=== PATIENT | male | born 1950 | race Caucasian/White ===

== ENCOUNTER 2024-06-15 18:42 | Inpatient (IN) | payer BC, MEDICARE, SELFPAY ==
[2024-06-15 18:57] VITALS: BP 122/63; PULSE 76; RESP 17; TEMP 36.7; O2SAT 90; BMI 28.5
[2024-06-15 21:30] VITALS: PULSE 76; RESP 17
[2024-06-15] MEDS: Carvedilol 25 MG Tablet GT (22:48)
[2024-06-15] MEDS: Heparin Injection (Vial) 5,000 UNIT/ML VIAL 5000 UNIT SC (22:48)
[2024-06-15] MEDS: Amox/Clavulanate 875 MG Tablet GT (22:49)
[2024-06-15] MEDS: Ergocalciferol 1.25 MG (50, 000 UNIT) Capsule PO (22:49)
[2024-06-16] VITALS (7 sets, daily range): BP systolic 110–133; BP diastolic 62–77; PULSE 54–75; RESP 17–18; TEMP 36.5–36.8; O2SAT 85–94; BMI 28.5
[2024-06-16] MEDS: Heparin Injection (Vial) 5,000 UNIT/ML VIAL 5000 UNIT SC (06:06)
[2024-06-16 08:23] LABS: Absolute Lymphocyte Count 2.09 X10^3/uL (0.83-4.51); Absolute Neutrophil Count 9.7 X10^3/uL (2.0-7.7); Basophil# 0.14 X10^3/uL; Eosinophil# 0.63 X10^3/uL; Eosinophils% 4.5 % (0-5); Hemoglobin 12.2 g/dL (13.0-16.5); Lymphocyte # 2.09 X10^3/ul (0.83-4.51); Mean Corp Hgb Conc 32.1 g/dL (32-36); Mean Corpuscular Hgb 28.8 pg (27.0-32.0); Mean Corpuscular Volume 89.8 fL (80-94); Mean Platelet Vol. 11.6 fl (6.2-12.0); Monocyte# 1.22 X10^3/uL; Monocyte% 8.8 % (0-10); NRBC Flagged by Analyzer 0 % (0-5); Neutrophil # 9.66 X10^3/uL (2.7-7.7); Neutrophil % 69.5 % (47-70); Platelet Count 388 K/mm3 (150-450); RBC Distribution Width CV 13.2 % (11.6-14.6); RBC Distribution Width SD 42.8 fl (35.1-43.9); Red Blood Count 4.23 M/mm3 (4.6-6.2); White Blood Count 13.9 K/mm3 (4.4-11.0)
[2024-06-16 08:42] LABS: Anion Gap 3 (5-15); BUN 33 mg/dL (7-18); BUN/Creat Ratio 35.7 RATIO (10-20); Chloride 106 mmol/L (98-107); Creatinine, Serum 0.92 mg/dL (0.70-1.30); EST Glomerular Filtration Rate 86 mL/min (>60); Est Glom Filt Rate - Afr Amer 104 mL/min (>60); Estimated Creatinine Clearance 70.85 ml/min; Glucose 123 mg/dL (74-106); Magnesium 2.6 mg/dL (1.6-2.6); Sodium Level 135 mmol/L (136-145)
[2024-06-16 08:49] LABS: Phosphorus 3.9 mg/dL (2.5-4.9)
[2024-06-16] MEDS: Thiamine Hydrochloride 100 MG Tablet GT (11:03)
[2024-06-16] MEDS: Amox/Clavulanate 875 MG Tablet GT (11:03)
[2024-06-16] MEDS: Ascorbic Acid 500 MG Tablet GT (11:03)
[2024-06-16] MEDS: Carvedilol 25 MG Tablet GT ×2 (11:03→21:26)
[2024-06-16] MEDS: amLODIPine 10 MG Tablet GT (11:03)
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
[2024-06-16 12:44] LABS: AST(SGOT) 19 U/L (15-37); Alanine Aminotransfer ALT/SGPT 26 U/L (16-61); Albumin, Serum 2.3 g/dL (3.2-5.0); Alkaline Phosphatase 76 U/L (45-117); Bilirubin, Direct 0.12 mg/dL (0.00-0.30); Globulin 4.4 g/dL (2.2-4.2); Protein, Total 6.7 g/dL (6.4-8.2)
--- NOTE | 2024-06-16 13:08 | RAD_ITS ---
EXAM: XR CHEST, 1 VIEW CLINICAL INDICATION: cough/leukocytosis TECHNIQUE: Frontal view of the chest. COMPARISON: No relevant prior studies available. FINDINGS: LUNGS AND PLEURAL SPACES: Ill-defined opacity involving the medial aspect of the right lower lung and possibly also the retrocardiac region of the left lower lobe. Central bronchial thickening is concerning for bronchitis. No pneumothorax. No effusion. HEART: Unremarkable. Cardiac silhouette not enlarged. MEDIASTINUM: Central airways and mediastinal contour are unremarkable. BONES/JOINTS: Degenerative changes of the spine. No acute fracture. SOFT TISSUES: Unremarkable. VASCULATURE: Atherosclerotic calcifications of the nonenlarged thoracic aortic arch. RAD/Chest 1 View (Portable) IMPRESSION: Ill-defined opacity involving the medial aspect of the right lower lung and possibly also the retrocardiac region of the left lower lobe. Consider atelectasis versus infiltrate. Findings concerning for bronchitis, age indeterminate. Electronically Signed: Brody Krishnan MD at 14:58 EST ,
[2024-06-16 13:43] LABS: Bacteria 0 SEEN /hpf (None Seen); Mucous, Urine 0 SEEN /hpf (<or=2+); Squamous Epithelial Cells - UA 0 SEEN /hpf (0-5)
[2024-06-16 13:53] LABS: Color, Urine Yellow (Yellow); Glucose, Dipstick Normal (Normal); Ketone-Dipstick Negative (Negative); Leukocyte Esterase-Dipstick 25 /ul (Negative); Nitrite-Dipstick Negative (Negative); Occult Blood-Urine 10 /ul (Negative); Protein-Dipstick 15 mg/dl (Negative); Urine Bilirubin Dipstick Negative (Negative); Urine Clarity Clear (Clear); Urine Urobilinogen 1 mg/dl (Normal); Urine pH 6.5 (5.0 - 8.0)
[2024-06-16 14:00] LABS: Osmolality, Serum 304 mOsm/KG (280-301)
[2024-06-16 14:02] LABS: Hyaline Cast 0-5 SEEN /lpf (0-5); Red Blood Cells-Urine 0-5 SEEN /hpf (0-5); White Blood Cells 0-5 SEEN /hpf (0-5)
[2024-06-16 14:08] LABS: Bacteria 0 SEEN /hpf (None Seen); Mucous, Urine 0 SEEN /hpf (<or=2+); Red Blood Cells-Urine 0 SEEN /hpf (0-5); Squamous Epithelial Cells - UA 0 SEEN /hpf (0-5)
[2024-06-16 14:20] LABS: Color, Urine Yellow (Yellow); Glucose, Dipstick Normal (Normal); Ketone-Dipstick Negative (Negative); Leukocyte Esterase-Dipstick 25 /ul (Negative); Nitrite-Dipstick Negative (Negative); Occult Blood-Urine Negative /ul (Negative); Protein-Dipstick Negative (Negative); Specific Gravity, Urine 1.025 (1.002-1.030); Urine Bilirubin Dipstick Negative (Negative); Urine Clarity Clear (Clear); Urine Urobilinogen 1 mg/dl (Normal)
[2024-06-16 14:29] LABS: Osmolality, Urine 718 mOsm/KG
[2024-06-16 14:29] LABS: Hemoglobin A1c 5.5 % (3.8-5.6)
[2024-06-16 14:31] LABS: Urine Sodium 49 mmol/L (Not Establ.)
[2024-06-16 14:40] LABS: White Blood Cells 0-5 SEEN /hpf (0-5)
--- NOTE | 2024-06-16 15:04 | REHABEVAL_ITS ---
Admission Information Primary Diagnosis:: Intracerebral hemorrhage Status Changes from Prescreening?: No changes Identified Actual Problem List:: Aspiration, Skin Intergrity, Pain, ALteration in Cmfrt, Cognitve Impr/Memory Loss, Depression, Bladder Incontinence (Urine retention), Alteration in Nutrition, Mobility Impaired, Self Care Deficit, Know.Dfct of Medicaitons, BP, Hypertension, Alteration/ Air Exchange and Alteration-Leisure Activ. Potential Problem List:: DVT, Bleeding, Infection, UTI, Aspiration, Falls, Skin Integrity and Depression Risk of Complications DVT: VERONICA Hose and - (Lovenox 40 mg subcu daily) Bleeding: Monitor Lab Values, Nursing to Teach Precautions for anti-coagulation therapy., Wound, if applicable, to be assessed every shift. and Stroke patients assessed for lethargy or change in status. Infection: Clinical Staff to Monitor for S/S of infection: and S/S of infection include fever, redness, warmth, etc. Urinary Tract Infection: Monitor for frequency, burning, discomfort, or incontinence. and Nursing will obtain urine sample for urinalysis and C&S when ordered. Aspiration: Clinical staff will monitor for coughing, drooling, congestion., Speech will evaluate swallowing and dsyphasia. and Nursing will monitor patient swallowing during meals. Falls: Patient will be evaluated for Fall Precautions and Patient will be placed on Fall Precautions as indicated per protocol. Skin Breakdown: Nursing will assess skin daily using assessment tool. and Tiago sing will place on Skin Breakdown Precautions as indicated. Pain: Clinical staff will assess patient's pain level per protocol., Medications will be given, if needed, and the pain level reassessed. and Other methods: Massage, distraction, decrease stimulus, etc. used PRN. Plan of Care Patient requires physician specializing in physical medicine and rehab oversight to provide close medical supervision of rehab issues including: Pain Management, Sleep Problems, Bowel and Bladder, Medical and co-morbidity Management, DVT pr ophylaxis, Rehabilitation Leadership and Coordination of treatment team Patient needs Physical Therapy: For a minimum of 1 hour and At least 5 out of 7 days Patient needs Physical Therapy to improve:: Mobility, Strengthening, Transfers, Stretching, ROM, Endurance, Stairs, Gait and Balance Patient needs Occupational Therapy: For a minimum of 1 hour and At least 5 out of 7 days Patient needs Occupational Therapy to improve ADL's incl.: Eating, Grooming, Bathing, Dressing, Toileting, Toilet transfers, Community Reintegration, Higher functioning activities, Household tasks, Adaptive Equipment, Splinting and Other activities as determined Patient requires speech therapy: For a minimum of 1 hour and At least 5 out of 7 days Patient requires speech therapy for: Swallowing, Cognition, Language Skills and Compensatory Strategies Patient requires 24/ Rehabilitation Nursing for: Pain Issues, Identifying and preventing risk factors, Monitoring and reporting current medical conditions, Assisting with ambulation, transfer, and all ADL's, Teaching patients about disease process and medications, Family teaching, Providing safe environment, Bowel and Bladder Issues, Skin integrity and Medication Management Patient needs Poultry Farm Manager/ Case Management for: Discharge Planning, Arranging Home Equipment or Services and Family Interventions Patient needs Dietary and Nutrition Services for: Adequate Nutrition, Nutritional Supplements and Nutritional Education Goals Goals Patient will remain: free from falls Patient will perform eating at: MOD I level of assist. Patient will perform bed mobility at: MOD I level of assist. Patient will complete transfers from bed to chair at: - (Contact-guard assist/standby assist) Patient will ambulate: - (100 feet with least restrictive device at contact- guard assist on various surfaces) Patient will complete upper body dressing at: - (Supervision) Patient will complete lower body dressing at: - (Revision with adaptive equipment as needed) Patient will complete toilet transfer at: - (Supervision) Patient will complete toileting at: - (Supervision) Patient will perform bathing at: - (Supervision with adaptive equipment as needed for lower body bathing.) Patient will perform Tub/Shower transfer at: - (Supervision using DME as needed.) Patient will complete grooming at: - (Supervision while seated at the sink) Patient will achieve: - (1 step with least restrictive device using the door frame for assistance to allow access to his home.) Patient will have pain level of: of 3 or less Patient's skin will: remain intact Patient will receive: adequate nutrition. Discharge Planning Pt Prognosis for Sig. Practical Improv. w/in Reasonable Time: Good Estimated Length of stay (days): 42 Anticipated D/C Destination: Home with Home Health
--- NOTE | 2024-06-16 15:54 | CASEMGMT ---
Social Work Pt cannot participate in admission assessment. SW attempted to phone , but no answer. SW will continue to attempt. Jacy Barajas, IN SERVICE COORDINATOR AUT[employer] RADIATOR MECHANIC
[2024-06-16] MEDS: 0.9% Normal Saline (1000mL) 1,000 ML 75 ML IV (17:53)
[2024-06-16] MEDS: Jevity 1.5. 1,000 ML Bottle 240 ML GT ×2 (18:00→22:58)
[2024-06-16] MEDS: Gentamicin Sulfate 1 OPTH.BTL 1 DRP EACH EYE (21:30)
--- NOTE | 2024-06-17 00:54 | NURSING ---
2049 hs care and clinical findings completed, pt belly noted to more rounded this hs, bowel sounds are present times 4 quads. pt checked for residual and was 120ccplus. jevity held until later, and rn made aware. 2299 pt residual was rechecked and was 45cc and brown in color, jevity given at this time but had a dry heave when almost finished. pt placed in high fowlers and was encouraged to stay up to let the jevity digest
[2024-06-17] MEDS: Gentamicin Sulfate 1 OPTH.BTL 1 DRP EACH EYE ×6 (02:38→21:00)
[2024-06-17] MEDS: Cosyntropin 0.25 MG in 0.9% Normal Saline (Pres. free 4 ML 150 MG IV (04:53)
[2024-06-17] MEDS: 0.9% Saline Lock 10 ML Syringe IV (04:53)
[2024-06-17 05:00] VITALS: BP 118/72; PULSE 69; RESP 16; TEMP 36.7; O2SAT 94
[2024-06-17] MEDS: Jevity 1.5. 1,000 ML Bottle 240 ML GT ×5 (05:14→21:02)
[2024-06-17 05:18] LABS: Cholesterol 113 mg/dL (200); High Density Lipoprotein 33 mg/dL; Triglycerides 84 mg/dL; Very Low Density Lipoprotein 17 mg/dL (5-40)
[2024-06-17] MEDS: 0.9% Normal Saline (1000mL) 1,000 ML 75 ML IV (07:48)
[2024-06-17] MEDS: Carvedilol 25 MG Tablet GT ×2 (07:59→21:00)
[2024-06-17] MEDS: amLODIPine 10 MG Tablet GT (07:59)
[2024-06-17] MEDS: Thiamine Hydrochloride 100 MG Tablet GT (08:00)
[2024-06-17] MEDS: Ascorbic Acid 500 MG Tablet GT (08:00)
[2024-06-17] MEDS: Enoxaparin 40 MG/0.4 ML Syringe SC (08:00)
[2024-06-17] MEDS: Sertraline 50 MG Tablet GT (08:00)
[2024-06-17 08:11] VITALS: BP 109/72; PULSE 80; O2SAT 94
[2024-06-17 17:53] VITALS: BP 129/81; PULSE 79; RESP 20; TEMP 36.6; O2SAT 79
[2024-06-17 20:50] VITALS: O2SAT 88
[2024-06-17 20:58] VITALS: BP 146/78; PULSE 83; RESP 20; TEMP 36.8; O2SAT 92
[2024-06-18] MEDS: Gentamicin Sulfate 1 OPTH.BTL 1 DRP EACH EYE ×6 (02:12→21:36)
[2024-06-18 04:48] VITALS: BP 127/71; PULSE 74; RESP 20; TEMP 36.8; O2SAT 92
[2024-06-18] MEDS: Enoxaparin 40 MG/0.4 ML Syringe SC (05:58)
[2024-06-18] MEDS: Jevity 1.5. 1,000 ML Bottle 240 ML GT ×5 (05:59→21:39)
[2024-06-18 08:17] VITALS: O2SAT 96
[2024-06-18 08:53] VITALS: BP 139/75; PULSE 80
[2024-06-18] MEDS: Cholecalciferol (Vit D3) 125 MCG CAPSULE (5,000 UNITS) GT (09:49)
[2024-06-18] MEDS: Thiamine Hydrochloride 100 MG Tablet GT (09:49)
[2024-06-18] MEDS: amLODIPine 10 MG Tablet GT (09:49)
[2024-06-18] MEDS: Ascorbic Acid 500 MG Tablet GT (09:49)
[2024-06-18] MEDS: Sertraline 50 MG Tablet GT (09:49)
[2024-06-18] MEDS: Carvedilol 25 MG Tablet GT ×2 (09:49→21:42)
[2024-06-18 18:00] VITALS: BP 113/65; PULSE 75; RESP 18; TEMP 36.8; O2SAT 91
[2024-06-19] MEDS: Gentamicin Sulfate 1 OPTH.BTL 1 DRP EACH EYE ×6 (02:08→22:32)
[2024-06-19] MEDS: 0.9% Saline Lock 10 ML Syringe IV ×2 (02:10→22:51)
[2024-06-19 06:00] VITALS: BP 114/73; PULSE 70; RESP 17; TEMP 36.7; O2SAT 92
[2024-06-19] MEDS: Enoxaparin 40 MG/0.4 ML Syringe SC (06:07)
[2024-06-19] MEDS: Jevity 1.5. 1,000 ML Bottle 240 ML GT ×5 (06:07→22:38)
[2024-06-19] MEDS: Carvedilol 25 MG Tablet GT ×2 (09:35→22:32)
[2024-06-19] MEDS: Sertraline 50 MG Tablet GT (09:35)
[2024-06-19] MEDS: Ascorbic Acid 500 MG Tablet GT (09:35)
[2024-06-19] MEDS: Thiamine Hydrochloride 100 MG Tablet GT (09:35)
[2024-06-19] MEDS: Cholecalciferol (Vit D3) 125 MCG CAPSULE (5,000 UNITS) GT (09:35)
[2024-06-19] MEDS: amLODIPine 10 MG Tablet GT (09:35)
[2024-06-19 09:36] VITALS: BP 109/65; PULSE 66
--- NOTE | 2024-06-19 09:36 | PCM.PROGNOTE ---
Subjective Subjective Please he was seen on team rounds today. His did not answer the phone when we attempted to return to participate by phone. Afebrile VSS - Maintaining an oxygen saturation of generally 98-94 on a 3 L nasal cannula. Oral intake - FOOD n.p.o./PEG feedings FLUIDS n.p.o. Incontinent of stool-having 1-2 bowel movements daily. Discussed with nursing - no problems that need addressed. Tolerating bolus tube feed with no residuals. Nursing is suctioning for clear secretions. Reviewed the THERAPY notes Medication list reviewed. doing better with ST. Able to identify the year he was born, his age, where he lives using a white board and given 3 choices. Occasional cough. No labored breathing. Not tachypneic. Still not able to cough and clear the secretions in the back of his throat. Denies pain. Not5 really able to maintain an upright posture in the recliner.......keeps sliding down so that he is mostly reclined. I reviewed additional documentation we received from previous hospital. Transthoracic echocardiogram showed a hyperdynamic left ventricle with a 70 to 75% ejection fraction and no wall motion abnormalities. There was impaired relaxation of the left ventricle. An incidental finding on CTA of the chest was a 3.4 cm x 2.7 cm heterogeneous left adrenal gland nodule. Also on the CTA there was severe upper lung predominant centrilobular and paraseptal emphysema. There were dependent secretions noted within the trachea and central airways resulting in mild narrowing of the left principal bronchus. There were no suspicious pulmonary nodules or masses. An incidental finding on the CT brain is a 3.4 cm right parotid mass. Objective Data Objective Data Vital Signs: Vital Signs Temp Pulse Resp BP Pulse Ox O2 Del Method O2 Flow Rate 98.0 F 66 17 109/65 92 Nasal Cannula 3 06/19/24 06:00 06/19/24 09:36 06/19/24 06:00 06/19/24 09:36 06/19/24 06:00 06/19/24 06:00 06/19/24 06:00 FiO2 94 06/16/24 20:50 Oxygen Flow Rate (L/min) 3 Oxygen Delivery Method Nasal Cannula Weight: 171 lb 8.314 oz Body Mass Index (BMI) 28.5 Intake & Output: Intake and Output for Last 24 Hours 06/17/24 06/18/2406/19/25 23:59 23:59 23:59 Intake Total 4765 / 4765 1780 / 1780 640 / 640 Output Total 1900 / 1900 1900 / 1900 250 / 250 Balance 2865 / 2865 -120 / -120 390 / 390 Lab / Micro Data 06/16/24 08:06 06/16/24 08:06 Micro: Microbiology 06/16/24 14:37 Discharge - Eye Eye Culture - Preliminary Staphylococcus epidermidis 06/16/24 14:37 Discharge - Eye Anaerobic Culture - Preliminary Checking for anaerobes, further studies to follow. 06/15/24 19:00 Urine Catheter - Denton Urine Culture - Final Culture exhibits no growth. 06/16/24 14:25 Stool Stool Occult Blood (ZITA) - Final Physical Exam Const Constitutional Narrative: more awake and better able to participate with therapy. Very weak. Unable to sit upright in the chair without sliding down into a semi-reclining postition. Unable to cough and Clear post pharyngeal secretions. Making better eye contact. General Appearance: cooperative HEENT HEENT Narrative: Has gurgling in the back of the throat that he is unable to cough up and expel. Conjunctival injection has resolved. The eyes are tearing a little but no purulent discharge now. Culture grew a multidrug-resistant Staph epidermidis. It is sensitive to gentamicin. Eyes PERRL Neck Neck Narrative: unable to hold his head up, chin is on his chest. Resp Resp Narrative: Very poor inspiratory effort. Breath sounds markedly diminished throughout. No wheezes or crackles auscultated. Not tachypneic. Head is flexed on the chest and I think this is causing some obstruction to air flow. Cardio regular rate and regular rhythm Cardio Narrative: No ectopy. Distant heart sounds GI normal to inspection, nondistended, normoactive bowel sounds and soft to palpation GI Narrative: No guarding with palpation. The PEG site is free of erythema or purulent discharge. Extremity General Extremity: Negative for edema Skin Wound Narrative: The rash on the abd is much improved. Localized pink dry crusty area now. No longer scratching at it. Psych Psych Narrative: making better eye contact today. Assessment & Plan Assessment/Plan (1) Debility: (2) ICH (intracerebral hemorrhage): QUALIFIERS: Intracerebral hemorrhage etiology: nontraumatic Cerebral hemorrhage location: other cerebral location Laterality: left Qualified Code(s): I61.8 - Other nontraumatic intracerebral hemorrhage (3) Right hemiparesis: (4) Aphasia: (5) Dysarthria: (6) Dysphagia: QUALIFIERS: Dysphagia type: unspecified Qualified Code(s): R13.10 - Dysphagia, unspecified (7) S/P percutaneous endoscopic gastrostomy (PEG) tube placement: (8) Urine retention: (9) Denton catheter present: (10) Depression: QUALIFIERS: Depression Type: major depressive disorder Major depression recurrence: unspecified whether recurrent Active/Remission status: currently active Major depression episode severity: severe Psychotic features: without psychotic features Qualified Code(s): F32.2 - Major depressive disorder, single episode, severe without psychotic features (11) Hyperglycemia: (12) HTN (hypertension): QUALIFIERS: Hypertension type: primary hypertension Qualified Code(s): I10 - Essential (primary) hypertension (13) Pneumonia: QUALIFIERS: Pneumonia type: due to unspecified organism Laterality: unspecified laterality Lung location: unspecified part of lung Qualified Code(s): J18.9 - Pneumonia, unspecified organism PLAN: Resolved (14) Conjunctivitis: QUALIFIERS: Conjunctivitis type: unspecified Laterality: bilateral Qualified Code(s): H10.9 - Unspecified conjunctivitis PLAN: Much improved with gentamicin drops. (15) Hyponatremia: (16) Adrenal mass, left: PLAN: Will need further workup as an outpatient following discharge from rehab. (17) Centrilobular emphysema: PLAN: Plan 1. Continue therapy 2. CBC with differential and BMP in the a.m. 3. soft cervical collar when he is out of bed 4. Start aerosols Q6H for severe emphysema. 5. suction mouth and posterior pharynx PRN AF. No indication for antibiotic at this time. 6. Will need further evaluation for the left adrenal nodule and right parotid mass postdischarge from rehab. Charges/Coding Visit Charges Inpatient E&M: 99405 Subs Hosp L2
--- NOTE | 2024-06-19 10:57 | CASEMGMT ---
Social Work Phone call to pt to complete admission assessment. VM left with request for return call. VICTORINA Lemus
--- NOTE | 2024-06-19 14:48 | CASEMGMT ---
IDT meeting held today with pt in attendance. Phone call to pt's spouse for conference call with no answer and VM left. PT/OT/ST/SN updated pt on current progress in . PT has shown improvement since admission on and is more alert and participating better at this time. ST working with pt on swallowing and communication. Pt is currently getting tube feeds and wearing oxygen. Pt working with PT/OT for function. JOE explained that [employer] insurance is covering stay in and NRD is 06/22. Continued stay is not guaranteed. At this time pt is unable to communicate with staff. SW has been unable to reach pt's by phone. 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 SW will continue to reach out to pt spouse to discuss home situation and discharge plan. Will continue with treatment plan at this time and ReTeam next week. VICTORINA Lemus
[2024-06-19 18:00] VITALS: BP 101/65; PULSE 68; RESP 17; TEMP 36.8; O2SAT 94
[2024-06-19 20:30] VITALS: PULSE 71; RESP 24; O2SAT 93
[2024-06-19] MEDS: Ipratropium/Albuterol Sulfate 3 ML AMPUL.NEB INHALATION (20:30)
--- NOTE | 2024-06-19 21:07 | CPS ---
[2030] Had to go to ER per medical emergency. CLOTH W[employer] WEAVER agreeable to take aerosol mask off of pt. when complete.
[2024-06-20] VITALS (7 sets, daily range): BP systolic 115–118; BP diastolic 70–77; PULSE 68–82; RESP 16–22; TEMP 36.6–36.9; O2SAT 86–92
[2024-06-20] MEDS: Ipratropium/Albuterol Sulfate 3 ML AMPUL.NEB INHALATION ×4 (01:21→19:40)
[2024-06-20] MEDS: Gentamicin Sulfate 1 OPTH.BTL 1 DRP EACH EYE ×6 (01:51→23:22)
[2024-06-20 05:59] LABS: Absolute Lymphocyte Count 2.13 X10^3/uL (0.83-4.51); Absolute Neutrophil Count 8.3 X10^3/uL (2.0-7.7); Basophil# 0.12 X10^3/uL; Eosinophil# 0.34 X10^3/uL; Eosinophils% 2.7 % (0-5); Hematocrit 36.3 % (40-54); Hemoglobin 11.4 g/dL (13.0-16.5); Lymphocyte # 2.13 X10^3/ul (0.83-4.51); Mean Corp Hgb Conc 31.4 g/dL (32-36); Mean Corpuscular Hgb 28.3 pg (27.0-32.0); Mean Corpuscular Volume 90.1 fL (80-94); Mean Platelet Vol. 11.4 fl (6.2-12.0); Monocyte# 1.54 X10^3/uL; Monocyte% 12.3 % (0-10); NRBC Flagged by Analyzer 0 % (0-5); Neutrophil # 8.31 X10^3/uL (2.7-7.7); Neutrophil % 66.2 % (47-70); POSITIVE DIFFERENTIAL YES; Platelet Count 362 K/mm3 (150-450); RBC Distribution Width CV 13.2 % (11.6-14.6); RBC Distribution Width SD 42.9 fl (35.1-43.9); Red Blood Count 4.03 M/mm3 (4.6-6.2); White Blood Count 12.5 K/mm3 (4.4-11.0)
--- NOTE | 2024-06-20 06:00 | NURSING ---
20cc residual green in color, peg patent/flushes well. Peg site clean/dry/intact.
[2024-06-20 06:05] LABS: Differential Indicated SCAN CRITERIA MET
[2024-06-20] MEDS: Jevity 1.5. 1,000 ML Bottle 240 ML GT ×5 (06:14→23:26)
[2024-06-20] MEDS: Enoxaparin 40 MG/0.4 ML Syringe SC (06:14)
[2024-06-20 06:25] LABS: Anion Gap 2 (5-15); BUN 21 mg/dL (7-18); BUN/Creat Ratio 26.7 RATIO (10-20); Calcium,Total 8.7 mg/dL (8.5-10.1); Chloride 103 mmol/L (98-107); Creatinine, Serum 0.79 mg/dL (0.70-1.30); EST Glomerular Filtration Rate 103 mL/min (>60); Est Glom Filt Rate - Afr Amer 125 mL/min (>60); Estimated Creatinine Clearance 81.48 ml/min; Glucose 105 mg/dL (74-106); Potassium 4.1 mmol/L (3.5-5.1); Sodium Level 133 mmol/L (136-145)
[2024-06-20 07:16] LABS: Platelet Estimate ADEQUATE (ADEQ)
[2024-06-20] MEDS: Thiamine Hydrochloride 100 MG Tablet GT (09:54)
[2024-06-20] MEDS: amLODIPine 10 MG Tablet GT (09:54)
[2024-06-20] MEDS: Ascorbic Acid 500 MG Tablet GT (09:54)
[2024-06-20] MEDS: Sertraline 50 MG Tablet GT (09:54)
[2024-06-20] MEDS: Carvedilol 25 MG Tablet GT ×2 (09:54→23:22)
[2024-06-20] MEDS: Cholecalciferol (Vit D3) 125 MCG CAPSULE (5,000 UNITS) GT (09:55)
[2024-06-20] MEDS: 0.9% Saline Lock 10 ML Syringe IV (09:58)
--- NOTE | 2024-06-20 13:34 | PCM.PROGNOTE ---
Subjective Subjective Afebrile VSS - Maintaining appropriate oxygen saturation on RA Oral intake - FOOD n.p.o. FLUIDS n.p.o. fluid balance over the past 3 and half days is +413. Discussed with nursing - keeps taking his oxygen off. Reviewed the THERAPY notes - ability to participate in therapy waxes and wanes. He fatigues very easily. Medication list reviewed. Mostly non-verbal. He did say no when I asked him if he was 82 YO and when I asked him if he was a woman. Not consistently making good eye contact. Does not seem to be in any pain. He was watching the TV when I entered his room. He is not tachypneic and has no labored breathing. He is not restless other than taking hid oxygen off. All lab from this morning was personally viewed. White blood cell count is 12.5, down from 13.8. Immature granulocytes and neutrophils are within normal limits. Hemoglobin is 11.4, down from 12.2 but he is better hydrated. Platelets are within normal limits. Sodium is 133 and the potassium is 4.1. The BUN is 21, down from 33 on 06/16/2024 and the creatinine is 0.79, down from 0.9-1.25. Objective Data Objective Data Vital Signs: Vital Signs Temp Pulse Resp BP Pulse Ox O2 Del Method O2 Flow Rate 98.5 F 71 16 115/77 92 Nasal Cannula 9 06/20/24 06:30 06/20/24 13:05 06/20/24 13:05 06/20/24 06:30 06/20/24 07:02 06/20/24 10:00 06/20/24 10:00 FiO2 94 06/16/24 20:50 Oxygen Flow Rate (L/min) 9 Oxygen Delivery Method Nasal Cannula Weight: 171 lb 8.314 oz Body Mass Index (BMI) 28.5 Intake & Output: Intake and Output for Last 24 Hours 06/18/24 06/19/24 06/20/24 23:59 23:59 23:59 Intake Total 1780 / 1780 2320 / 2320 640 / 640 Output Total 1900 / 1900 1275 / 1275 300 / 300 Balance -120 / -120 1045 / 1045 340 / 340 Lab / Micro Data 06/20/24 05:39 06/20/24 05:39 Labs: Laboratory Results - last 24 hr 06/17/24 07:04: Cortisol 37.20 H 06/20/24 05:39: WBC 12.5 H, RBC 4.03 L, Hgb 11.4 L, Hct 36.3 L, MCV 90.1, MCH 28.3, MCHC 31.4 L, RDW Std Deviation 42.9, RDW Coeff of Homero 13.2, Plt Count 362, MPV 11.4, Immature Gran % (Auto) 0.800, Neut % (Auto) 66.2, Lymph % (Auto) 17.0 L, Mobile % (Auto) 12.3 H, Eos % (Auto) 2.7, Baso % (Auto) 1.0, Absolute Neuts (auto) 8.3 H, Absolute Lymphs (auto) 2.13, Nucleated RBC % 0, Platelet Estimate ADEQUATE, Sodium 133 L, Potassium 4.1, Chloride 103, Carbon Dioxide 28.0, Anion Gap 2 L, BUN 21 H, Creatinine 0.79, Estim Creat Clear Calc 81.48, Est GFR (MDRD) Af Amer 125, Est GFR (MDRD) Non-Af 103, BUN/Creatinine Ratio 26.7 H, Glucose 105, Calcium 8.7 Micro: Microbiology 06/16/24 14:37 Discharge - Eye Gram Stain - Final 06/16/24 14:37 Discharge - Eye Eye Culture - Final Staphylococcus epidermidis 06/16/24 14:37 Discharge - Eye Anaerobic Culture - Final No anaerobic bacteria isolated. 06/15/24 19:00 Urine Catheter - Denton Urine Culture - Final Culture exhibits no growth. 06/16/24 14:25 Stool Stool Occult Blood (ZITA) - Final Physical Exam Const Constitutional Narrative: Able to hold his head up a little better today. Did not have the soft collar on when I saw him. Eyes Eyes Narrative: No DC and no conjunctival injection. Resp Resp Narrative: seems to have increased air exchange in the upper lobes today.........occasional cough.......less gurgling. cough is more forceful today and he sounded as though he cleared the secretions in the posterior pharynx with the cough. No wheezing. Still very diminished in the bases. Effort and Inspection: Negative for tachypneic, respiratory distress, labored or uses accessory muscles Cardio regular rate and regular rhythm Cardio Narrative: Distant heart sounds GI normal to inspection, nondistended, normoactive bowel sounds, soft to palpation and non-tender GI Narrative: 2 BMs yesterday. Extremity Extremity Narrative: no calf pain or grimacing with compression of the calf. General Extremity: Negative for edema Skin Wound Narrative: Dry skin and rash from the Hydralaziine are much improved. he is no longer scratching. Assessment & Plan Assessment/Plan (1) Debility: (2) ICH (intracerebral hemorrhage): QUALIFIERS: Intracerebral hemorrhage etiology: nontraumatic Cerebral hemorrhage location: other cerebral location Laterality: left Qualified Code(s): I61.8 - Other nontraumatic intracerebral hemorrhage (3) Right hemiparesis: (4) Aphasia: (5) Dysarthria: (6) Dysphagia: QUALIFIERS: Dysphagia type: unspecified Qualified Code(s): R13.10 - Dysphagia, unspecified (7) S/P percutaneous endoscopic gastrostomy (PEG) tube placement: (8) Urine retention: (9) Denton catheter present: (10) Depression: QUALIFIERS: Depression Type: major depressive disorder Major depression recurrence: unspecified whether recurrent Active/Remission status: currently active Major depression episode severity: severe Psychotic features: without psychotic features Qualified Code(s): F32.2 - Major depressive disorder, single episode, severe without psychotic features (11) Hyperglycemia: (12) HTN (hypertension): QUALIFIERS: Hypertension type: primary hypertension Qualified Code(s): I10 - Essential (primary) hypertension (13) Pneumonia: QUALIFIERS: Pneumonia type: due to unspecified organism Laterality: unspecified laterality Lung location: unspecified part of lung Qualified Code(s): J18.9 - Pneumonia, unspecified organism (14) Conjunctivitis: QUALIFIERS: Conjunctivitis type: unspecified Laterality: bilateral Qualified Code(s): H10.9 - Unspecified conjunctivitis (15) Hyponatremia: (16) Adrenal mass, left: (17) Centrilobular emphysema: (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 Continue therapy 2. And sodium chloride tablets 1 g per PEG tube twice daily 3. Recheck sodium on Wednesday or Wednesday. 4. Continue current tube feeding and water flushes. Charges/Coding Visit Charges Inpatient E&M: 90910 [facility] Hosp L1
--- NOTE | 2024-06-20 14:43 | NURSING ---
pt refused ST today
--- NOTE | 2024-06-20 15:07 | CASEMGMT ---
Social Work A third attempt to contact the to complete the SW admit assessment. VM left requesting return call. Jacy Barajas MSW POLICE DISPATCHER
[2024-06-20] MEDS: Sodium Chloride 1 GM Tablet GT (23:22)
[2024-06-21] VITALS (8 sets, daily range): BP systolic 101–140; BP diastolic 72–89; PULSE 73–77; RESP 16–18; TEMP 36.6–36.7; O2SAT 87–94
[2024-06-21] MEDS: Gentamicin Sulfate 1 OPTH.BTL 1 DRP EACH EYE ×5 (03:41→17:14)
[2024-06-21] MEDS: Jevity 1.5. 1,000 ML Bottle 240 ML GT ×2 (05:15→09:19)
[2024-06-21] MEDS: Enoxaparin 40 MG/0.4 ML Syringe SC (05:15)
[2024-06-21] MEDS: Ipratropium/Albuterol Sulfate 3 ML AMPUL.NEB INHALATION ×3 (08:05→19:55)
[2024-06-21] MEDS: Carvedilol 25 MG Tablet GT ×2 (09:18→21:34)
[2024-06-21] MEDS: Cholecalciferol (Vit D3) 125 MCG CAPSULE (5,000 UNITS) GT (09:18)
[2024-06-21] MEDS: Thiamine Hydrochloride 100 MG Tablet GT (09:18)
[2024-06-21] MEDS: amLODIPine 10 MG Tablet GT (09:18)
[2024-06-21] MEDS: Ascorbic Acid 500 MG Tablet GT (09:18)
[2024-06-21] MEDS: Sodium Chloride 1 GM Tablet GT ×2 (09:18→21:34)
[2024-06-21] MEDS: Sertraline 50 MG Tablet GT (09:18)
[2024-06-21 14:19] LABS: Pathologist Review Reviewed
[2024-06-21] MEDS: 0.9% Saline Lock 10 ML Syringe IV (14:23)
--- NOTE | 2024-06-21 16:41 | NURSING ---
pt refused ST today. also refused to allow nurse to administer 1400 peg feeding.
--- NOTE | 2024-06-21 16:57 | CASEMGMT ---
Social Work- SW spoke with pt , Yuliet, to conduct initial assessment via telephone. SW introduced self and role. Yuliet agreeable to conversation and verified contacts, and information gathered in chart review. 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 SW provided reassurance and empathetic listening. Yuliet shared that she and pt have been together for 16+ years. Pt enjoyed motorcycle riding and tinkering in his garage prior to the double stroke pt had almost 2 years ago. Pt previously had [facility] after being d/c from [place] and participated well despite having underlying depression following his stroke. Pt regained most function after stroke, using a cane and having some confusion being the lingering impact that notes. Pt plans to visit tomorrow at 8am on [address] home from work and would like updates with therapy. Pt reports that she would like to take pt home at discharge, but is open to whatever pt needs at time of discharge. Yuliet did note that there are loose ends like putting assets in a trust that she had planned to take care of, but had not been completed as of this time. Pt notes that her insurance changed as of June 07 and she has BC/BS and pt also has MCR. SW requested Yuliet bring the cards with her to copy at her visit. JOE remains available to follow for discharge planning needs. VICTORINA Hernandez
--- NOTE | 2024-06-21 17:18 | NURSING ---
attempting to give pt 1800 bolus feeding, pt refuses. will not allow this nurse to use the PEG tube for water flush or Jevity bolus At this time .
[2024-06-22] VITALS (7 sets, daily range): BP systolic 116–120; BP diastolic 70–74; PULSE 68–76; RESP 16–18; TEMP 36.6; O2SAT 4–97; BMI 28.5
--- NOTE | 2024-06-22 00:02 | NURSING ---
2023 pt was cooperative with care being completed and did take hs medications and flush for peg tube but continues to refuse jevity. pt had 40cc of residual that brown colored this hs. pt had s small bm non formed pasty stool in attends this hs as well
[2024-06-22] MEDS: Ipratropium/Albuterol Sulfate 3 ML AMPUL.NEB INHALATION (01:22)
[2024-06-22] MEDS: Enoxaparin 40 MG/0.4 ML Syringe SC (05:00)
[2024-06-22] MEDS: Jevity 1.5. 1,000 ML Bottle 240 ML GT ×3 (05:55→16:58)
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
--- NOTE | 2024-06-22 09:50 | RAD_ITS ---
STUDY: X-RAY - ABDOMEN/PELVIS REASON FOR EXAM: Male, 73 years old. Constipation TECHNIQUE: Single AP view of the abdomen / pelvis. COMPARISON: None. FINDINGS: Normal visualized lung bases. A PEG tube is seen within the stomach. There is a moderate amount of colonic fecal material. The visualized liver, spleen and kidneys are grossly normal in size and morphology. Normal soft tissue structures. There are degenerative changes of the visualized lumbar spine. RAD/Abdomen Single View IMPRESSION: A PEG tube is seen within the stomach. Moderate amount of fecal material is seen in the colon. Electronically Signed: Fred Dumont MD at 11:24 EST ,
[2024-06-22] MEDS: Sodium Chloride 1 GM Tablet GT ×2 (10:10→21:52)
[2024-06-22] MEDS: Carvedilol 25 MG Tablet GT ×2 (10:10→21:53)
[2024-06-22] MEDS: Ascorbic Acid 500 MG Tablet GT (10:10)
[2024-06-22] MEDS: Thiamine Hydrochloride 100 MG Tablet GT (10:10)
[2024-06-22] MEDS: Magnesium Hydroxide 30 ML UDC PO (10:10)
[2024-06-22] MEDS: Cholecalciferol (Vit D3) 125 MCG CAPSULE (5,000 UNITS) GT (10:10)
[2024-06-22] MEDS: Docusate Sodium 100 MG/10 ML UDC GT (10:12)
[2024-06-22] MEDS: amLODIPine 10 MG Tablet GT (10:33)
[2024-06-22] MEDS: Sertraline 100 MG Tablet GT (12:49)
[2024-06-22] MEDS: Finasteride 5 MG Tablet GT (12:50)
[2024-06-22] MEDS: Haloperidol Lactate 5 MG/ML Vial 1 MG IM (13:28)
--- NOTE | 2024-06-22 13:38 | CT_ITS ---
STUDY: CT BRAIN WITHOUT CONTRAST REASON FOR EXAM: Male, 73 years old. Change in mental status/follow-up on hemorrhagic C RADIATION DOSAGE (If Supplied By Facility): CTDIvol = ( 44.99 ) mGy, DLP = ( 829.85 ) mGycm TECHNIQUE: Transaxial CT imaging of the brain was performed without administration of intravenous contrast material. Individualized dose optimization techniques were used for this CT. COMPARISON: No relevant priors. FINDINGS: Normal soft tissue structures. Normal calvarium. There is moderate cerebral atrophy with widening of the extra-axial spaces and ventricular dilatation. There are areas of decreased attenuation within the white matter tracts of the supratentorial brain, consistent with microvascular disease changes. Decreased attenuation also seen in the left hemipelvis. Normal brainstem. Focal decreased attenuation in the left cerebellar hemisphere consistent with history of acute left cerebellar infarct. There is mild cerebellar atrophy. There is no intracranial hemorrhage. There are no findings of an acute ischemic infarction. Mucosal thickening along the inferior aspect of the left maxillary sinus. CT/Brain/Head without Contrast IMPRESSION: Chronic involutional changes of the brain. Subacute infarction in the left cerebellum as well as in the left thalamus. No intracranial hemorrhage is seen at this time. Electronically Signed: Fred Dumont MD at 15:43 EST ,
[2024-06-22] MEDS: RisperiDONE 0.5 MG Tablet PO (21:52)
--- NOTE | 2024-06-22 23:15 | NURSING ---
7 pt not engaging with staff this hs, kept his eyes closed with eyebrows furrowed. requiring 2 assist to do any movement in the bed, when pt does help on an occasion. pt residual was 160cc this hs and pt was keeping his hands across his stomach. staff was able to give other medication but pt refused the jevity
[2024-06-23] MEDS: Enoxaparin 40 MG/0.4 ML Syringe SC (05:37)
[2024-06-23 06:00] VITALS: BP 110/71; PULSE 67; RESP 18; TEMP 36.7; O2SAT 92; BMI 28.3
[2024-06-23] MEDS: Jevity 1.5. 1,000 ML Bottle 240 ML GT ×5 (06:02→22:33)
[2024-06-23 06:30] LABS: Absolute Lymphocyte Count 1.48 X10^3/uL (0.83-4.51); Absolute Neutrophil Count 8.3 X10^3/uL (2.0-7.7); Basophil# 0.03 X10^3/uL; Basophil% 0.3 % (0-1); Eosinophil# 0.35 X10^3/uL; Eosinophils% 3.2 % (0-5); Hematocrit 38.6 % (40-54); Hemoglobin 12.2 g/dL (13.0-16.5); Lymphocyte # 1.48 X10^3/ul (0.83-4.51); Lymphocyte % 13.6 % (19-41); Mean Corp Hgb Conc 31.6 g/dL (32-36); Mean Corpuscular Hgb 28.3 pg (27.0-32.0); Mean Corpuscular Volume 89.6 fL (80-94); Monocyte# 0.71 X10^3/uL; Monocyte% 6.5 % (0-10); NRBC Flagged by Analyzer 0 % (0-5); Neutrophil # 8.25 X10^3/uL (2.7-7.7); Neutrophil % 75.8 % (47-70); Platelet Count 372 K/mm3 (150-450); RBC Distribution Width CV 13.2 % (11.6-14.6); RBC Distribution Width SD 43.1 fl (35.1-43.9); Red Blood Count 4.31 M/mm3 (4.6-6.2); White Blood Count 10.9 K/mm3 (4.4-11.0)
[2024-06-23 06:57] LABS: Anion Gap 5 (5-15); BUN 22 mg/dL (7-18); BUN/Creat Ratio 24.6 RATIO (10-20); Calcium,Total 9.2 mg/dL (8.5-10.1); Chloride 106 mmol/L (98-107); EST Glomerular Filtration Rate 89 mL/min (>60); Est Glom Filt Rate - Afr Amer 107 mL/min (>60); Estimated Creatinine Clearance 72.13 ml/min; Glucose 142 mg/dL (74-106); Potassium 3.9 mmol/L (3.5-5.1); Sodium Level 137 mmol/L (136-145)
[2024-06-23 07:25] VITALS: PULSE 72; RESP 21; O2SAT 96
[2024-06-23] MEDS: Ipratropium/Albuterol Sulfate 3 ML AMPUL.NEB INHALATION ×2 (07:25→19:17)
[2024-06-23 07:30] VITALS: O2SAT 93
--- NOTE | 2024-06-23 08:50 | PCM.PROGNOTE ---
Subjective Subjective Afebrile VSS -the blood pressure is within goal and the heart rate is within normal limits. Maintaining appropriate oxygen saturation on RA Oral intake - FOOD remains n.p.o. FLUIDS n.p.o. has been in negative fluid balance past few days secondary to refusal of some tube feeds. Discussed with nursing - TF held last night for residual. Received TF today. Was calm and not aggressive last night. No significant BM in the past few days....just pasty smears. Night nursing reports he was holding his stomach last night. he denied pain to me yesterday and the abd was soft with no guarding with palpation Reviewed the THERAPY notes Medication list reviewed. Started on Risperdal 0.5 mg twice daily yesterday for aggressive behavior. All lab from today was personally reviewed. The white blood cell count is down to 10.9 with 75.8% neutrophils and normal immature granulocytes. Hemoglobin is 12.2, up from 11.4 on 06/20/2024 and I suspect this may be due to intravascular volume depletion. Platelets are within normal limits. Sodium is up to 137 and the potassium is 3.9. The BUN is 22 which is stable. Creatinine is 0.9. Calcium is normal. KUB yesterday showed a moderate amount of fecal material in the colon. Nicolasa's came in for a visit this morning. He was tearful when he saw her. He was cooperative with therapy today. Had a large BM this AM when working with PT. Denied abd pain and denied SOB. He does not appear to be in any physical distress. Objective Data Objective Data Vital Signs: Vital Signs Temp Pulse Resp BP Pulse Ox O2 Del Method O2 Flow Rate 98.1 F 72 21 H 110/71 93 Nasal Cannula 4 06/23/24 06:00 06/23/24 07:25 06/23/24 07:25 06/23/24 06:00 06/23/24 07:30 06/23/24 07:30 06/23/24 07:30 FiO2 4 06/22/24 06:00 Oxygen Flow Rate (L/min) 4 Oxygen Delivery Method Nasal Cannula Weight: 169 lb 15.622 oz Body Mass Index (BMI) 28.3 Intake & Output: Intake and Output for Last 24 Hours 06/21/24 06/22/24 06/23/24 23:59 23:59 23:59 Intake Total 1680 / 1680 1330 / 1330 200 / 200 Output Total 2600 / 2600 1150 / 1150 150 / 150 Balance -920 / -920 180 / 180 50 / 50 Lab / Micro Data 06/23/24 06:24 06/23/24 06:24 Labs: Laboratory Results - last 24 hr 06/23/24 06:24: WBC 10.9, RBC 4.31 L, Hgb 12.2 L, Hct 38.6 L, MCV 89.6, MCH 28.3, MCHC 31.6 L, RDW Std Deviation 43.1, RDW Coeff of Homero 13.2, Plt Count 372, MPV 11.0, Immature Gran % (Auto) 0.600, Neut % (Auto) 75.8 H, Lymph % (Auto) 13.6 L, Ford % (Auto) 6.5, Eos % (Auto) 3.2, Baso % (Auto) 0.3, Absolute Neuts (auto) 8.3 H, Absolute Lymphs (auto) 1.48, Nucleated RBC % 0, Sodium 137, Potassium 3.9, Chloride 106, Carbon Dioxide 26.0, Anion Gap 5, BUN 22 H, Creatinine 0.90, Estim Creat Clear Calc 72.13, Est GFR (MDRD) Af Amer 107, Est GFR (MDRD) Non-Af 89, BUN/Creatinine Ratio 24.6 H, Glucose 142 H, Calcium 9.2 Micro: Microbiology 06/16/24 14:37 Discharge - Eye Gram Stain - Final 06/16/24 14:37 Discharge - Eye Eye Culture - Final Staphylococcus epidermidis 06/16/24 14:37 Discharge - Eye Anaerobic Culture - Final No anaerobic bacteria isolated. 06/15/24 19:00 Urine Catheter - Denton Urine Culture - Final Culture exhibits no growth. 06/16/24 14:25 Stool Stool Occult Blood (ZITA) - Final Radiography Diagnostic Testing: Radiology Impression KUB X-Ray 06/22/24 09:50 IMPRESSION: A PEG tube is seen within the stomach. Moderate amount of fecal material is seen in the colon. Electronically Signed: Fred Dumont MD at 11:24 EST , Brain CT 06/22/24 13:38 IMPRESSION: Chronic involutional changes of the brain. Subacute infarction in the left cerebellum as well as in the left thalamus. No intracranial hemorrhage is seen at this time. Electronically Signed: Fred Dumont MD at 15:43 EST , Physical Exam Const alert Constitutional Narrative: more cooperative today. No aggressive behavior. Eyes PERRL and EOMs intact bilaterally Neck supple Resp Resp Narrative: Better air exchange since the aerosols were started. Less cough and clearing of his throat. No wheezing. CTA anterior and lateral. Cardio regular rate, regular rhythm, no rub and no gallops Cardio Narrative: No ectopy GI normal to inspection, nondistended, normoactive bowel sounds and soft to palpation GI Narrative: No guarding with palpation. PEG site has no significant erythema surrounding the tube site and no purulent discharge. Extremity General Extremity: Negative for edema Assessment & Plan Assessment/Plan (1) Debility: (2) ICH (intracerebral hemorrhage): QUALIFIERS: Intracerebral hemorrhage etiology: nontraumatic Cerebral hemorrhage location: other cerebral location Laterality: left Qualified Code(s): I61.8 - Other nontraumatic intracerebral hemorrhage (3) Right hemiparesis: (4) Aphasia: (5) Dysarthria: (6) Dysphagia: QUALIFIERS: Dysphagia type: unspecified Qualified Code(s): R13.10 - Dysphagia, unspecified (7) S/P percutaneous endoscopic gastrostomy (PEG) tube placement: (8) Urine retention: (9) Denton catheter present: (10) Depression: QUALIFIERS: Depression Type: major depressive disorder Major depression recurrence: unspecified whether recurrent Active/Remission status: currently active Major depression episode severity: severe Psychotic features: without psychotic features Qualified Code(s): F32.2 - Major depressive disorder, single episode, severe without psychotic features (11) HTN (hypertension): QUALIFIERS: Hypertension type: primary hypertension Qualified Code(s): I10 - Essential (primary) hypertension (12) Physically aggressive behavior: PLAN: Etiology? New bleed? psychosis? (13) Constipation: PLAN: Plan 1. Continue therapy 2. Continue Risperdal 0.5 mg twice daily. It is not causing sedation and he is more cooperative and not aggressive today. 3. Laxative today to clean him out. 4. Continue salt tablets 5. Voiding trial on Wednesday (will have had 5 doses of Proscar by then). 6. Change the docusate Syrup to twice daily scheduled 7. Continue enoxaparin for DVT prophylaxis. Charges/Coding Visit Charges Inpatient E&M: 63384 [facility] Hosp L1
[2024-06-23] MEDS: RisperiDONE 0.5 MG Tablet PO ×2 (09:42→22:35)
[2024-06-23] MEDS: Ascorbic Acid 500 MG Tablet GT (09:43)
[2024-06-23] MEDS: Sodium Chloride 1 GM Tablet GT ×2 (09:43→22:35)
[2024-06-23] MEDS: Thiamine Hydrochloride 100 MG Tablet GT (09:43)
[2024-06-23] MEDS: Cholecalciferol (Vit D3) 125 MCG CAPSULE (5,000 UNITS) GT (09:43)
[2024-06-23] MEDS: Finasteride 5 MG Tablet GT (09:43)
[2024-06-23] MEDS: Sertraline 100 MG Tablet GT (09:43)
[2024-06-23] MEDS: Carvedilol 25 MG Tablet GT ×2 (09:45→22:34)
[2024-06-23] MEDS: amLODIPine 10 MG Tablet GT (09:45)
[2024-06-23 09:46] VITALS: BP 120/75; PULSE 70
--- NOTE | 2024-06-23 11:03 | CASEMGMT ---
Social Work SW spoke with pt and at bedside. visiting. SW discussed the insurance may issue a DC date at this review and is not required to provide any advanced noticed. Discussed goals for DC. 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 stated she has some 'people lined up to help' when the pt gets DCd, 'while she is at work'. SW inquired that pt would need to be a one-person assist and confirmed. SW explained pt is currently a [employer]/x2 person assist, and unsure how long the insurance will approve for RU stay, along with pt's level of improvement at that time. Encouraged securing a SNF for an alternative DC plan, if needed. agreed. SW inquired about county of SNFs. would like to remain in [facility], but denies referrals to [facility] or [facility]. SW explained that leaves [facility] and [facility] as options. offered to refer to both of those SNFs and verify insurance cover. agreed. SW explained precert process and insurance would need to approve SNF coverage. expressed understanding, and wanted to ensure Medicare part A, would be billed for his stay as well, which is pt's secondary insurance. SW explained that if the primary payor denies coverage, it will not default to the secondary payor as the secondary payor will not cover the service. expressed understanding after continued explanation from this worker. SW to update with outcomes of SNF referrals. - Referrals sent to [facility] and [facility] via [facility]. Will continue to follow. RASHID Nicole
[2024-06-23] MEDS: Magnesium Hydroxide 30 ML UDC PO (12:04)
[2024-06-23 18:00] VITALS: BP 109/64; PULSE 71; RESP 16; TEMP 36.9; O2SAT 94
[2024-06-23 19:17] VITALS: PULSE 69; RESP 18
[2024-06-23] MEDS: Docusate Sodium 100 MG/10 ML UDC GT (22:31)
[2024-06-23] MEDS: 0.9% Saline Lock 10 ML Syringe IV (22:48)
[2024-06-24] VITALS (7 sets, daily range): BP systolic 107–110; BP diastolic 56–67; PULSE 65–76; RESP 16–19; TEMP 36.8–36.9; O2SAT 91–93
[2024-06-24] MEDS: Enoxaparin 40 MG/0.4 ML Syringe SC (05:01)
[2024-06-24] MEDS: Jevity 1.5. 1,000 ML Bottle 240 ML GT ×5 (07:10→20:19)
[2024-06-24] MEDS: Ipratropium/Albuterol Sulfate 3 ML AMPUL.NEB INHALATION ×3 (07:44→19:55)
[2024-06-24] MEDS: amLODIPine 10 MG Tablet GT (10:58)
[2024-06-24] MEDS: Carvedilol 25 MG Tablet GT ×2 (10:58→20:16)
[2024-06-24] MEDS: Finasteride 5 MG Tablet GT (10:58)
[2024-06-24] MEDS: Sertraline 100 MG Tablet GT (10:58)
[2024-06-24] MEDS: RisperiDONE 0.5 MG Tablet PO ×2 (10:58→20:17)
[2024-06-24] MEDS: Docusate Sodium 100 MG/10 ML UDC GT ×2 (10:58→20:17)
[2024-06-24] MEDS: Cholecalciferol (Vit D3) 125 MCG CAPSULE (5,000 UNITS) GT (10:58)
[2024-06-24] MEDS: Thiamine Hydrochloride 100 MG Tablet GT (10:58)
[2024-06-24] MEDS: Sodium Chloride 1 GM Tablet GT ×2 (10:58→20:18)
[2024-06-24] MEDS: Ascorbic Acid 500 MG Tablet GT (10:59)
[2024-06-25] VITALS (7 sets, daily range): BP systolic 120–123; BP diastolic 72–74; PULSE 59–77; RESP 17–20; TEMP 36.7–37.1; O2SAT 90–94
[2024-06-25] MEDS: Ipratropium/Albuterol Sulfate 3 ML AMPUL.NEB INHALATION ×4 (01:20→19:15)
[2024-06-25] MEDS: Enoxaparin 40 MG/0.4 ML Syringe SC (04:31)
[2024-06-25] MEDS: Jevity 1.5. 1,000 ML Bottle 240 ML GT ×5 (04:39→21:43)
[2024-06-25] MEDS: Magnesium Hydroxide 30 ML UDC PO (04:48)
[2024-06-25] MEDS: amLODIPine 10 MG Tablet GT (10:00)
[2024-06-25] MEDS: Carvedilol 25 MG Tablet GT ×2 (10:00→21:38)
[2024-06-25] MEDS: Cholecalciferol (Vit D3) 125 MCG CAPSULE (5,000 UNITS) GT (10:00)
[2024-06-25] MEDS: Finasteride 5 MG Tablet GT (10:00)
[2024-06-25] MEDS: Sertraline 100 MG Tablet GT (10:00)
[2024-06-25] MEDS: Ascorbic Acid 500 MG Tablet GT (10:00)
[2024-06-25] MEDS: Sodium Chloride 1 GM Tablet GT ×2 (10:00→21:38)
[2024-06-25] MEDS: RisperiDONE 0.5 MG Tablet PO ×2 (10:00→21:38)
[2024-06-25] MEDS: Thiamine Hydrochloride 100 MG Tablet GT (10:00)
[2024-06-25] MEDS: Docusate Sodium 100 MG/10 ML UDC GT ×2 (13:43→21:37)
[2024-06-26] VITALS (9 sets, daily range): BP systolic 102–132; BP diastolic 63–76; PULSE 65–79; RESP 16–20; TEMP 36.6–37.1; O2SAT 90–93; BMI 28.5
[2024-06-26] MEDS: Ipratropium/Albuterol Sulfate 3 ML AMPUL.NEB INHALATION ×4 (01:20→18:54)
[2024-06-26] MEDS: Enoxaparin 40 MG/0.4 ML Syringe SC (05:01)
[2024-06-26] MEDS: Jevity 1.5. 1,000 ML Bottle 240 ML GT ×5 (05:04→21:59)
[2024-06-26] MEDS: Docusate Sodium 100 MG/10 ML UDC GT ×2 (10:10→21:59)
[2024-06-26] MEDS: RisperiDONE 0.5 MG Tablet PO ×2 (10:10→21:58)
[2024-06-26] MEDS: Carvedilol 25 MG Tablet GT ×2 (10:11→21:58)
[2024-06-26] MEDS: Finasteride 5 MG Tablet GT (10:11)
[2024-06-26] MEDS: amLODIPine 10 MG Tablet GT (10:11)
[2024-06-26] MEDS: Ascorbic Acid 500 MG Tablet GT (10:11)
[2024-06-26] MEDS: Cholecalciferol (Vit D3) 125 MCG CAPSULE (5,000 UNITS) GT (10:11)
[2024-06-26] MEDS: Sodium Chloride 1 GM Tablet GT ×2 (10:11→21:59)
[2024-06-26] MEDS: Sertraline 100 MG Tablet GT (10:11)
[2024-06-26] MEDS: Thiamine Hydrochloride 100 MG Tablet GT (10:11)
--- NOTE | 2024-06-26 11:22 | PCM.PROGNOTE ---
Subjective Subjective Nicolasa was seen on team rounds today. Yuliet participated by phone. Afebrile VSS - Maintaining appropriate oxygen saturation on RA Oral intake - FOOD n.p.o. FLUIDS n.p.o. fluid intake is not accurate for yesterday. Having regular bowel movements. Discussed with nursing - has not been agitated but, he sometimes pushes the nurse away when he is being given a TF. Soemtimes refuses to do the Nu-step but, at other times he is compliant with therapy. He is still a 2 person assist for getting into the chair. Reviewed the THERAPY notes. Has been cooperating with ST recently. Requiring max assist for static sitting posture while in the wheelchair and tends to flex forward. Still with significant right-sided neglect. He is max/total assist for functional mobility to and from the bathroom using a wheelchair. Had a FEES done today and he will remain NPO with ice chips per ST only. Still mostly nonverbal with me. Will smile on occasion. Medication list reviewed. Denies pain. Not tachypneic. Does not appear to be in any acute distress. Making eye contact with me when I can keep him awake. Objective Data Objective Data Vital Signs: Vital Signs Temp Pulse Resp BP Pulse Ox O2 Del Method O2 Flow Rate 98.3 F 77 20 H 132/76 H 91 Nasal Cannula 4 06/26/24 05:30 06/26/24 10:30 06/26/24 06:54 06/26/24 10:30 06/26/24 06:54 06/26/24 06:54 06/26/24 09:07 FiO2 4 06/22/24 06:00 Oxygen Flow Rate (L/min) 4 Oxygen Delivery Method Nasal Cannula Weight: 171 lb 11.841 oz Body Mass Index (BMI) 28.5 Intake & Output: Intake and Output for Last 24 Hours 06/24/24 06/25/24 06/26/24 23:59 23:59 23:59 Intake Total 1800 / 1800 840 / 1040 870 / 870 Output Total 2200 / 2200 1250 / 1700 1500 / 1500 Balance -400 / -400 -410 / -660 -630 / -630 Lab / Micro Data 06/23/24 06:24 06/23/24 06:24 Micro: Microbiology 06/16/24 14:37 Discharge - Eye Gram Stain - Final 06/16/24 14:37 Discharge - Eye Eye Culture - Final Staphylococcus epidermidis 06/16/24 14:37 Discharge - Eye Anaerobic Culture - Final No anaerobic bacteria isolated. 06/15/24 19:00 Urine Catheter - Denton Urine Culture - Final Culture exhibits no growth. 06/16/24 14:25 Stool Stool Occult Blood (ZITA) - Final Physical Exam Const Constitutional Narrative: More cooperative with TF's and nursing since the Risperdal was added to the drug regimen. Mostly non-verbal. Occasionally will answer a yes or no question but, this is not consistent. No aggressive behavior. Was awake for TEAM rounds but, when I saw him at 5:30 PM he could not stay awake. Has not refused any TF's today. Eyes PERRL and EOMs intact bilaterally Neck supple Neck Narrative: Can not hold his head upright........chin is often flexed down onto the chest. OT had to hold his head up for him while he was trying to brush his teeth to prevent him from hitting his head on the sink. Resp Resp Narrative: Better air exchange since the aerosols were started but, still diminished throughout. No wheezing. CTA anterior and lateral. Not tachypneic Effort and Inspection: Negative for respiratory distress Cardio regular rate, regular rhythm, no rub and no gallops Cardio Narrative: No ectopy. Heart sounds are somewhat distant, suspect secondary to COPD with increased AP diameter of the chest. GI normal to inspection, nondistended, normoactive bowel sounds and soft to palpation GI Narrative: No guarding with palpation. PEG site has no significant erythema surrounding the tube site and no purulent discharge. Narrative: He has a small ulceration of the glans at the urethra.......likely due to irritation from the Denton. No yeast observed. No purulent discharge. Small amount of blood at the site. Denton catheter was discontinued today for voiding trial. Extremity Extremity Narrative: No red, swollen or warm joints to touch. No grimacing if I dorsiflex his feet more squeezes calf. General Extremity: Negative for edema Skin Rashes: no rashes Neuro Neuro Narrative: Has not made as much progress with therapy as we had hoped. He is more cooperative than he was. Remains NV. Unable to maintain static balance with sitting without max/total assist. Unable to hold his head upright. Fatigues very easily with very poor exercise tolerance. Remains NPO. Assessment & Plan Assessment/Plan (1) Debility: (2) ICH (intracerebral hemorrhage): QUALIFIERS: Intracerebral hemorrhage etiology: nontraumatic Cerebral hemorrhage location: other cerebral location Laterality: left Qualified Code(s): I61.8 - Other nontraumatic intracerebral hemorrhage (3) Right hemiparesis: (4) Aphasia: (5) Dysarthria: (6) Dysphagia: QUALIFIERS: Dysphagia type: unspecified Qualified Code(s): R13.10 - Dysphagia, unspecified (7) S/P percutaneous endoscopic gastrostomy (PEG) tube placement: (8) Urine retention: (9) Denton catheter present: (10) Depression: QUALIFIERS: Depression Type: major depressive disorder Major depression recurrence: unspecified whether recurrent Active/Remission status: currently active Major depression episode severity: severe Psychotic features: without psychotic features Qualified Code(s): F32.2 - Major depressive disorder, single episode, severe without psychotic features (11) HTN (hypertension): QUALIFIERS: Hypertension type: primary hypertension Qualified Code(s): I10 - Essential (primary) hypertension (12) Hypoxemia: PLAN: Plan 1. Continue therapy 2. Voiding trial today 3. I suspect the small ulceration at the tip of the urethra will heal with the Denton out. 4. SW has asked his to give her a few more SNF's to try. He has been refused by 2 already. 5. Not really sure he has the desire to live. When I ask him if he wants to he will not answer me. Not sure if he even understands what we are talking about. Frequently tearful. 6. Previously on 3 L/min of nasal O2 and now he is on 4-1/2 L. He hypoventilates. Serum bicarb has been normal so I doubt he is retaining CO2. Will get a CXR. Recent WBC was normal and he is afebrile. Charges/Coding Visit Charges Inpatient E&M: 00210 Subs Hosp L2
--- NOTE | 2024-06-26 12:52 | CASEMGMT ---
Social Work Team meeting held with pt at bedside and participated via phone. PT/OT/ST/SN/ provided updated. SW updated that insurance approved with NRD 06/29; [place] and [facility] both denied d/t agitation and behaviors. SW requested additional SNF choices. hesitant to provide any choices and requested if she can think about it further and follow up with this worker. SW agreed, but requested to follow up by the end of the day. agreed. also noted that would not be safe to care for pt at home d/t his level of care and that hiring senior infrastructure engineer 28/12 would become expensive, explained that pt will need a two assist. SW offered ongoing assistance with questions and DC planning. Jacy Barajas, ENTRY LEVEL FINANCE DIRECTOR OF COMMUNITY SERVICES
--- NOTE | 2024-06-26 13:16 | CASEMGMT ---
Social Work SW inquired to about advanced directives for pt. denied pt having documents completed. Pt cannot complete documents at this time. Jacy Barajas, FINANCIAL MANAGEMENT ANALYST CAMOUFLAGE SPECIALIST
--- NOTE | 2024-06-26 14:23 | CASEMGMT ---
Social Work SW received return call from requesting pt get transferred to [facility]. SW inquired further about details of request. stated she just called her insurance company and the insurance rep told the pt has up to 120 days in rehab and wants pt transferred to a facility that can keep working with pt instead of discharging him. SW reexplained at length the insurance review process: insurance is managing the pt's LOS, requesting clinical updates weekly, and gives the determination at the time of the review if pt meets criteria for continued stay or for DC, and insurance is not required to provide any advanced notice. SW explained [facility]T is not setting a DC date, there is no DC date, and the insurance will make that decision. SW also explained there is a difference between IRU and SNF rehab coverage, and unsure if the insurance provided with accurate information. apologized stating she misunderstood thinking pt was being discharged this week, though, states her insurance company has never done this before and always covered pt's care. SW explained this worker's role is to start DC planning upon admission, especially given the lack of notice for DC from the insurance, to ensure there is a safe and smooth DC for the pt and . Encouraged to trust this worker as this is this worker's primary role. still having difficulty understanding pt's need for SNF and the need to plan for DC in advance. stated she cannot provide this worker with an answer today. SW again offered to provide with with a list of INN SNFs, as insurance is not INN with every facility. denied stating I will get it from my insurance company. SW offered ongoing assistance, and will be following up with tomorrow. Jacy Barajas, AUTOTRANSFUSIONIST VENETIAN BLIND INSTALLER
--- NOTE | 2024-06-26 15:37 | NURSING ---
PEG PLACEMENT VERIFIED, 30 RESIDUAL AT 1O:OO AM, MEDS, JEVITY WITH FLUSH GIVEN, HEAD OF BED 30 DEGREES PER ORDER PT TOLERATED WELL. AT 1430 0 RESIDUAL AND JEVITY WITH FLUSH GIVEN, HEAD OF BED 30 DEGREES PT TOLERATED WELL. ORTIZ REMOVED AT 1530 PER ORDER. SMALL AMOUNT OF BLOOD AT TIP OF PENIS. PT TOLERATED WELL AND WILL CONTINUE TO MONITOR.
--- NOTE | 2024-06-26 16:42 | HP.SPFEES ---
FEES Patient Information Date of Evaluation: 06/26/24 Time of Evaluation: 10:30 Diagnosis: Severe Oropharyngeal Dysphagia Referring Physician: [facility] Staff Providing this Care/Treatment:: ALYSIA Direct Billable Minutes: 45 History: Past Medical History:: Per H&P: ?NICOLASA ALLEN is a 73-year-old patient with a medical history of bilateral cerebellar intracerebral hemorrhage (ICH) in 2022 and hypertension presented to OSH with dysarthria and right-sided weakness. The patient was intubated at OSH for airway protection, and the NIHSS score was 21. A CT head revealed a left thalamic ICH with intraventricular hemorrhage, while the right -sided CT head was stable. The patient was last known to be well on 06/01. After extubating, a PEG tube was placed due to altered mental status and an inability to safely accept oral intake. The patient was then transferred to [facility] inpatient rehab for continued care. Nicolasa has been receiving speech therapy services since 06/16/2024. He has remained NPO with alternative nutrition supplied through a PEG tube. He has been trialing ice chips and sips of thin water at bedside following FFWP. He shows s/sx of penetration/aspiration via coughing at bedside. A FEES was recommended to objectively assess his swallow function and determine least restrictive diet. Subjective: Subjective:: Upon ST's arrival, Nicolasa was reclined in his bedside chair asleep. He was easily aroused. An attempt was made to describe this procedure to the patient, however given the severity of his receptive aphasia, it is unclear how much he understood. ST modeling on Pt's low-tech AAC picture board that we were going to administer some drinks to him. Per chart review, Pt is functional in declining tx, however he did not decline treatment today after the education and modeling on the picture board. RN and BUTCHER APPRENTICE then assisted in sitting him up in his chair as upright as he could be given the severity of the right upper and lower extremity flaccidness. Throughout the procedure, Pt's body was hunched over to the right. Current Diet: Alternative Means of Nutrition/Hydration: PEG tube Comment:: OBJECTIVE ASSESSMENT OF SWALLOW FUNCTION (QUANTITATIVE ? PER TRIAL): PENETRATION / ASPIRATION SCALE (FERRER): 1 = does not enter airway 2 = enters airway/above vocal folds/ejected 3 = enters airway/above vocal folds/not ejected 4 = enters airway/contacts vocal folds/ejected 5 = enters airway/contacts vocal folds/not ejected 6 = enters airway/below vocal folds/ejected 7 = enters airway/below vocal folds/not ejected despite effort 8 = enters airway/below vocal folds/no effort VIDEOFLOROSCOPIC SCALE SCORE (FERRER): Grade I = aspiration of material that has penetrated into the laryngeal vestibule, intact cough reflex Grade II = aspiration < 10 % of the bolus, intact cough reflex Grade III = aspiration of < 10 % of the bolus, reduced cough reflex or aspiration of > 10 % of the bolus, intact cough reflex Grade IV = aspiration of > 10 % of the bolus, reduced cough reflex Respiratory Status Observation:: Pt was on 5L of O2 via NC at the time of evaluation. The flexible scope was placed around the NC. Dentition/Oral Hygiene: Observations:: Pt with natural dentition which included missing upper and lower teeth. Oral care was provided via WILBRET kit toothette swab prior to the start of the procedure. Vocal Quality: Observations:: Other (See Comment) Comments:: Pt with limited vocalizations throughout the assessment. He did grunt a few times towards the end of the study to indicate he was ready to be done. Cognition: Observations:: Impaired and Impacted exam Position During FEES: Location: In Chair Fiberoptic Endoscope: Size: 3.4 mm Nare Used:: Left Anatomy: Comments:: Upon passing the scope through the left nare, Pt with a moderate amount of mucous in his nasal cavity which reduced ST's visualization of the velum to 0%. Upon entering the larynx, ST was able to clean the camera of the mucous on the pharyngeal wall to create a clear image. Pt's overall tissue in the oropharynx and hypopharynx was diffusely moist and pink. ST unable to comment on the tissue of the nasopharynx d/t poor visualization because of the amount of mucous. Anatomical Findings: Anatomical Findings:: Pt demonstrating involuntary tremors of arytenoids, pharyngeal wall, and surrounding tissues. Also suspect Pt has difficulty voluntarily triggering a swallow d/t poor coordination with motor planning. This may be secondary to his previous bilateral cerebellar ICH. Secretions: Description:: Thick and White Location:: Nasopharynx, Oropharynx, Hypopharynx and Posterior Phonation: Comment:: D/t severe receptive aphasia deficits, Pt was unable to follow directions to participate in voicing tasks. Penetration-Aspiration Scale Penetration-Aspiration Scale Thin Liquids by Teaspoon Food/Drink Provided:: 1) Ice Chips 2) Thin Water by tsp Swallow Onset Location:: Aryepiglottic Folds and Pyriform Sinuses PAS Score: PAS Score *8 VASES Comments:: 1) Pt trialing 3 ice chips with coughing on one of the trials and SILENTLY aspirating the other two trials. Pt showing difficulty with triggering his swallow, but when he was able to, the bolus was at the level of the pyriform sinus. About 5% residue remaining in the pyriform following the swallowing along with 10% residue in the subglottis at the level of the cricoid. 2) Pt trialing thin by tsp 2x with coughing on one of two trials. On both trials, Pt aspirated below the vocal folds. Pt cough was semi-productive on clearing 90% of aspirated liquid, however 10% remained in the subglottis. Pt showing difficulty managing secretions via mucous pooling at the level of the pyriforms which spilled over to the arytenoids. Also observed reflux of higuera, thick liquid from the UES up to the level of the false vocal folds. Mildly Thick Liquids by Teaspoon Food/Drink Provided:: Mildly Thick Water via tsp Swallow Onset Location:: Aryepiglottic Folds PAS Score: PAS Score *8 Comments:: Pt trialed three sips of mildly thick liquid from a tsp with SILENT aspiration on one of the trials (PAS 8), liquid entering below the folds with Pt coughing but liquid not ejected on another trial (PAS 7), and Pt oral holding the last trial for greater than two minutes - Pt did not benefit from tactile or verbal cuing to initiate swallow d/t severe receptive aphasia. ST ended the study and as soon as the scope was removed, Pt triggered his swallow, therefore ST is not able to comment on the last trial. When the residue from trials remained in Pt's airway below his vocal folds he did not show signs of sensing the residue. During the mildly thick trials, ST observing a second instance of higuera, thick reflux from Pt's UES up to the level of the right lateral glossoepiglottic fold. Can not definitively rule out aspiration of this reflux material. Additional Comments:: Pt would benefit from a GI consult to further assess UES function. Diagnosis/Impressions Diagnosis: Severe Oropharyngeal Dysphagia Impressions: Pt demonstrating SILENT aspiration across ice chips, thin and mildly thick liquid consistencies. He has an unreliable cough response which when triggered is not fully productive on ejecting aspirated material out of the airway. During his coughing he shows strong pharyngeal contraction. He demonstrates reduced hyolaryngeal elevation, vocal fold closure, and suspected reduced epiglottic closure. He has poor secretion management and also demonstrates reflux of higuera, thick material from the UES. He would benefit from a GI consult to further assess UES function. See below for recommendations. Swallowing Impairment: Reduced Alertness or Attention, Difficulty Following Directions, Premature Posterior Loss, Decreased Pharyngeal Contraction and Decreased Airway Closure Recommendations Comments: - Continue with NPO status. - Continue with alternative means of nutrition via PEG tube. Follow strict aspiration precautions via sitting upright during tube feeds and for at least 30 min. after d/t reflux observed this date. - Continue with strict FFWP (ice chips and thin liquid) fed by ST and trained staff while monitoring lung sounds to help with hydration and clearing mucous. - GI Consult - Oropharyngeal exercises not recommended at this time d/t severe receptive aphasia causing comprehension deficits. Supervision: Fed by trained staff or family and Fed by COMPOSITE SCIENCE TEACHER Recommend Repeat Instrumental Swallow Assessment: Yes Need for Skilled Speech Therapy Services: Yes Recommended Referrals: GI Consult Education Completed: 7. Pt requires further education on strategies & risks. and 8. Family/caregivers require further education on strategies & risks. Frequency Frequency: 5x /Week
--- NOTE | 2024-06-26 18:03 | RAD_ITS ---
STUDY: X-RAY CHEST REASON FOR EXAM: Male, 73 years old. Hypoxemia TECHNIQUE: Single AP portable view of the chest. COMPARISON: June 16, 2024 FINDINGS: There are mild patchy right lower lung increased opacities. There is no demonstrated pleural abnormality. Normal size heart. Normal mediastinum and chung. Normal visualized pulmonary arteries. There is atherosclerotic calcification of the aortic arch. There are diffuse degenerative changes of the visualized thoracic spine. Normal visualized ribs, clavicles, and shoulders. There is no demonstrated abnormality of the visualized soft tissue structures of the upper abdomen. RAD/Chest 1 View (Portable) IMPRESSION: Right lower lung infiltrate. Electronically Signed: Darwin Randall MD at 18:56 EST ,
--- NOTE | 2024-06-26 18:44 | NURSING ---
1800 TUBE FEED,20 RESIDUAL JEVITY AND FLUSH PER ORDER,WITH HOB AT 30 DEGREES. PT TOLERATED WELL. PEG SITE CLEANED AND DRESSING CHANGED.
--- NOTE | 2024-06-26 19:26 | NURSING ---
notified by text of pt CXR results, no new orders at this time.
[2024-06-27 06:00] VITALS: BP 125/72; PULSE 70; RESP 20; TEMP 36.6; O2SAT 88
[2024-06-27] MEDS: Jevity 1.5. 1,000 ML Bottle 240 ML GT ×5 (06:23→22:52)
[2024-06-27] MEDS: Enoxaparin 40 MG/0.4 ML Syringe SC (06:23)
[2024-06-27 06:50] VITALS: PULSE 68; RESP 20; O2SAT 92
[2024-06-27] MEDS: Ipratropium/Albuterol Sulfate 3 ML AMPUL.NEB INHALATION ×4 (06:50→18:48)
--- NOTE | 2024-06-27 09:45 | CASEMGMT ---
Social Work SW received call from . continues to have difficulty understanding the insurance process and coverage on RU. is stating pt has 120 days or 4 months in RU. SW reiterated the explanation of insurance updates and subject to approval at each review date, even if the maximum amount of days available are 120 on RU. stated she wants to take pt home. SW inquired the details to a smooth discharge, such as 's work schedule, additional help at home, pt requiring a SeraLift, insurance coverage for a lift and room in the home to operate. stated she has FMLA from work, has additional people who stated they would come help, the house is big enough for a lift, and is prepared to pay for the lift if insurance does not cover it. SW requested to schedule therapy training to learn how to operate the lift, how pt functions, and how to use the peg tube. stated she can come 06/29 at 0900 for therapy/lift training. SW agreed and will refer to [facility] [place] SeraL[place]. - JOE sent request for cost to [facility] via [employer] ([employer]). Updated Therapy Char Filter Operator Helper of scheduled family training. Updated Dr. DIAZ will continue to follow. RASHID NicoleW
[2024-06-27] MEDS: Docusate Sodium 100 MG/10 ML UDC GT ×2 (10:10→22:51)
[2024-06-27] MEDS: Cholecalciferol (Vit D3) 125 MCG CAPSULE (5,000 UNITS) GT (10:10)
[2024-06-27] MEDS: Thiamine Hydrochloride 100 MG Tablet GT (10:10)
[2024-06-27] MEDS: amLODIPine 10 MG Tablet GT (10:10)
[2024-06-27] MEDS: Ascorbic Acid 500 MG Tablet GT (10:10)
[2024-06-27] MEDS: Sertraline 100 MG Tablet GT (10:10)
[2024-06-27] MEDS: Finasteride 5 MG Tablet GT (10:11)
[2024-06-27] MEDS: RisperiDONE 0.5 MG Tablet PO ×2 (10:11→22:51)
[2024-06-27] MEDS: Carvedilol 25 MG Tablet GT ×2 (10:11→22:51)
[2024-06-27] MEDS: Sodium Chloride 1 GM Tablet GT ×2 (10:12→22:51)
[2024-06-27] MEDS: 0.9% Saline Lock 10 ML Syringe IV (10:21)
[2024-06-27 11:10] LABS: Base Excess 2 mmol/L (-2 to +2); Bicarbonate 26.7 mmol/L (22-26); Blood Gas Specimen Type ART; Mode Not entered; O2 Delivery Device Cannula; PO2 67 mmHG (75-100); SITE R Brach; SO2 93 % (95-99); Total Carbon Dioxide 28 mmol/L; pCO2 45.3 mmHg (35-45); pH 7.38 (7.35-7.45)
[2024-06-27 11:17] VITALS: PULSE 70; RESP 20; O2SAT 92
[2024-06-27 15:30] VITALS: PULSE 67; RESP 18
--- NOTE | 2024-06-27 16:57 | PCM.PROGNOTE ---
Subjective Subjective Afebrile Blood pressure is well-controlled. Heart rate is within normal limits Requiring more oxygen to keep the saturation up. He is hypoventilating and has very poor inspiratory effort. Has been straight cathed twice for 700 cc the first time and 500 cc the second since the [place] was discontinued. Not coughing. CXR was read as infiltrates in the RLL but, he had this in past and was treated for PNA at the previous hospital. The last white blood cell count was normal on 06/23/2024. He denies feeling short of breath. Most of the time he will not answer my yes and no questions but, he did say no to SOB. He does not appear to be in any distress. Occasionally he will smile but, most of the time he has a blank stare. Objective Data Objective Data Vital Signs: Vital Signs Temp Pulse Resp BP Pulse Ox O2 Del Method O2 Flow Rate 98 F 67 18 125/72 H 92 Nasal Cannula 6 06/27/24 06:00 06/27/24 15:30 06/27/24 15:30 06/27/24 06:00 06/27/24 11:17 06/27/24 11:17 06/27/24 13:09 FiO2 4 06/22/24 06:00 Oxygen Flow Rate (L/min) 6 Oxygen Delivery Method Nasal Cannula Weight: 171 lb 11.841 oz Body Mass Index (BMI) 28.5 Intake & Output: Intake and Output for Last 24 Hours 06/25/24 06/26/24 06/27/24 23:59 23:59 23:59 Intake Total 840 / 1040 2390 / 2835 1725 / 1725 Output Total 1250 / 1700 1850 / 1850 1200 / 1200 Balance -410 / -660 540 / 985 525 / 525 Lab / Micro Data 06/23/24 06:24 06/23/24 06:24 Micro: Microbiology 06/16/24 14:37 Discharge - Eye Gram Stain - Final 06/16/24 14:37 Discharge - Eye Eye Culture - Final Staphylococcus epidermidis 06/16/24 14:37 Discharge - Eye Anaerobic Culture - Final No anaerobic bacteria isolated. 06/15/24 19:00 Urine Catheter - Dneton Urine Culture - Final Culture exhibits no growth. 06/16/24 14:25 Stool Stool Occult Blood (ZITA) - Final ABG Data ABG results: ABG 06/27/24 11:07 Specimen Type ART Sample Site R Brach pH 7.38 Bicarbonate Actual 26.7 H Total CO2 28 Base Excess 2 O2 Saturation 93 L O2 % 4.0 ABG pCO2 45.3 H ABG pO2 67 L O2 Delivery Device Cannula Vent Mode Not entered Radiography Diagnostic Testing: Radiology Impression Chest X-Ray 06/26/24 18:03 IMPRESSION: Right lower lung infiltrate. Electronically Signed: Darwin Randall MD at 18:56 EST , Physical Exam Const Constitutional Narrative: Unable to lift his chin off his chest. Slumped to the side in the WC and unable to sit upright. Resp Resp Narrative: Very poor inspiratory effort. I can hear no air exchange in either base. I also do not hear any crackles or wheezes. He is not tachypneic and there is no accessory muscle use. No obvious effusion on the chest x-ray yesterday. Cardio regular rate and regular rhythm Cardio Narrative: Distant heart sounds. No ectopy appreciated GI normal to inspection, nondistended, normoactive bowel sounds and soft to palpation GI Narrative: No guarding with palpation. PEG site has no purulent discharge and there is no significant erythema around the PEG. He does not grimace or flinch when I palpate around the PEG site. Extremity General Extremity: Negative for edema Skin Rashes: no rashes Neuro Neuro Narrative: Making no progress with therapy. Not sure if he understands what we are saying to him or if he just has no motivation to do anything. I seems as though he may just be giving up. Assessment & Plan Assessment/Plan (1) Debility: (2) ICH (intracerebral hemorrhage): QUALIFIERS: Intracerebral hemorrhage etiology: nontraumatic Cerebral hemorrhage location: other cerebral location Laterality: left Qualified Code(s): I61.8 - Other nontraumatic intracerebral hemorrhage (3) Right hemiparesis: (4) Aphasia: (5) Dysarthria: (6) Dysphagia: QUALIFIERS: Dysphagia type: unspecified Qualified Code(s): R13.10 - Dysphagia, unspecified (7) S/P percutaneous endoscopic gastrostomy (PEG) tube placement: (8) Urine retention: (9) Denton catheter present: (10) Depression: QUALIFIERS: Depression Type: major depressive disorder Major depression recurrence: unspecified whether recurrent Active/Remission status: currently active Major depression episode severity: severe Psychotic features: without psychotic features Qualified Code(s): F32.2 - Major depressive disorder, single episode, severe without psychotic features (11) HTN (hypertension): QUALIFIERS: Hypertension type: primary hypertension Qualified Code(s): I10 - Essential (primary) hypertension (12) Hypoxemia: PLAN: Plan 1. He is not making progress in therapy. His wants to take him home and she is coming in for family training/shared care in the AM. We have explained it takes 2 staff to get him from the bed to the chair and we are using a bean lift. He needs 24/7 care and he really needs 2 people to care for him. 2. check a CBC with diff, BMP, ESR and CRP in the AM. 3. The blood gas was checked today on 4 L nasal cannula and it showed a normal pH of 7.38 with 45 pCO2 and 67 O2. No significant Co2 retention that would account for lethargy. 4. I do not feel he has PNA........there was infiltrate in the R base at admission and it does not appear to be appreciably different now. He definitely has atelectasis. He is AF and the last WBC was normal and in fact has been coming down since admission. he is not coughing. No antibiotics indicated at this time. 5. Will DC the Risperdal in the AM but continue 0.5 mg at HS. Charges/Coding Visit Charges Inpatient E&M: 71929 Subs Hosp L1
[2024-06-27 18:00] VITALS: BP 150/69; PULSE 71; RESP 16; TEMP 37.1; O2SAT 90
[2024-06-27 18:48] VITALS: PULSE 72; RESP 17; O2SAT 90
[2024-06-28] VITALS (8 sets, daily range): BP systolic 121–129; BP diastolic 66–71; PULSE 62–75; RESP 16–20; TEMP 36.9–37.2; O2SAT 82–94
[2024-06-28] MEDS: Enoxaparin 40 MG/0.4 ML Syringe SC (06:17)
[2024-06-28] MEDS: Jevity 1.5. 1,000 ML Bottle 240 ML GT ×5 (06:17→22:47)
[2024-06-28 06:57] LABS: Anion Gap 6 (5-15); BUN 22 mg/dL (7-18); BUN/Creat Ratio 24.7 RATIO (10-20); CRP 7.46 mg/L (0.0-3.0); Calcium,Total 9.5 mg/dL (8.5-10.1); Chloride 103 mmol/L (98-107); Creatinine, Serum 0.89 mg/dL (0.70-1.30); EST Glomerular Filtration Rate 89 mL/min (>60); Est Glom Filt Rate - Afr Amer 108 mL/min (>60); Estimated Creatinine Clearance 73.29 ml/min; Glucose 103 mg/dL (74-106); Potassium 4.2 mmol/L (3.5-5.1); Sodium Level 137 mmol/L (136-145)
[2024-06-28 06:59] LABS: Absolute Lymphocyte Count 1.81 X10^3/uL (0.83-4.51); Basophil# 0.08 X10^3/uL; Basophil% 0.6 % (0-1); Eosinophils% 6.9 % (0-5); Hematocrit 38.7 % (40-54); Hemoglobin 12.5 g/dL (13.0-16.5); Lymphocyte # 1.81 X10^3/ul (0.83-4.51); Lymphocyte % 13.9 % (19-41); Mean Corp Hgb Conc 32.3 g/dL (32-36); Mean Corpuscular Hgb 29.2 pg (27.0-32.0); Mean Corpuscular Volume 90.4 fL (80-94); Mean Platelet Vol. 11.3 fl (6.2-12.0); Monocyte# 1.03 X10^3/uL; Monocyte% 7.9 % (0-10); NRBC Flagged by Analyzer 0 % (0-5); Neutrophil # 9.04 X10^3/uL (2.7-7.7); Neutrophil % 69.8 % (47-70); Platelet Count 338 K/mm3 (150-450); RBC Distribution Width SD 42.8 fl (35.1-43.9); Red Blood Count 4.28 M/mm3 (4.6-6.2)
[2024-06-28 07:06] LABS: Erythrocyte Sedimentation Rate 41 mm/hr (0-20)
[2024-06-28] MEDS: Ipratropium/Albuterol Sulfate 3 ML AMPUL.NEB INHALATION ×4 (07:38→19:48)
--- NOTE | 2024-06-28 09:12 | PN_ITS ---
Subjective Subjective Afebrile -on no antipyretics. VSS -blood pressure is well-controlled and the heart rate is within normal limits. Maintaining appropriate oxygen saturation on RA - supposedly 82 % on 5 L this AM but, he is constantly taking his oxygen off. Just rechecked on 4 LPM and the pulse ox is 94%. Oral intake - FOOD n.p.o. FLUIDS n.p.o. Weight has stabilized. Discussed with nursing -taking his oxygen off frequently during the day. No aggressive behavior. Reviewed the THERAPY notes - not progressing in therapy. came in today to work with PT. Medication list reviewed. All lab today was personally reviewed. White blood cell count is 13 today with 69.8% neutrophils and normal immature granulocytes. The sed rate is increased at 41 and the CRP is mildly increased at 7.46. Procalcitonin is within normal limits. Sodium is normal at 137 and the potassium is 4.2. BUN is stable at 22 with a stable creatinine at 0.89. Rare cough. Not tachypneic, no labored respirations. Very poor inspiratory effort. Objective Data Objective Data Vital Signs: Vital Signs Temp Pulse Resp BP Pulse Ox O2 Del Method O2 Flow Rate 98.5 F 69 18 129/71 H 82 Nasal Cannula 5 06/28/24 06:21 06/28/24 06:21 06/28/24 06:21 06/28/24 06:21 06/28/24 06:21 06/28/24 06:21 06/28/24 06:28 FiO2 4 06/22/24 06:00 Oxygen Flow Rate (L/min) 5 Oxygen Delivery Method Nasal Cannula Weight: 171 lb 11.841 oz Body Mass Index (BMI) 28.5 Intake & Output: Intake and Output for Last 24 Hours 06/26/24 06/27/24 06/28/24 23:59 23:59 23:59 Intake Total 2390 / 2835 1925 / 1925 400 / 400 Output Total 1850 / 1850 1600 / 2200 1000 / 1000 Balance 540 / 985 325 / -275 -600 / -600 Lab / Micro Data 06/28/24 05:22 06/28/24 05:22 Labs: Laboratory Results - last 24 hr 06/28/24 05:22: WBC 13.0 H, RBC 4.28 L, Hgb 12.5 L, Hct 38.7 L, MCV 90.4, MCH 29.2, MCHC 32.3, RDW Std Deviation 42.8, RDW Coeff of Homero 13.0, Plt Count 338, MPV 11.3, Immature Gran % (Auto) 0.900, Neut % (Auto) 69.8, Lymph % (Auto) 13.9 L, Evans % (Auto) 7.9, Eos % (Auto) 6.9 H, Baso % (Auto) 0.6, Absolute Neuts (auto) 9.0 H, Absolute Lymphs (auto) 1.81, Nucleated RBC % 0, ESR 41 H, Sodium 137, Potassium 4.2, Chloride 103, Carbon Dioxide 28.0, Anion Gap 6, BUN 22 H, Creatinine 0.89, Estim Creat Clear Calc 73.29, Est GFR (MDRD) Af Amer 108, Est GFR (MDRD) Non-Af 89, BUN/Creatinine Ratio 24.7 H, Glucose 103, Calcium 9.5, C- React Prot Ext Range 7.46 H Micro: Microbiology 06/16/24 14:37 Discharge - Eye Gram Stain - Final 06/16/24 14:37 Discharge - Eye Eye Culture - Final Staphylococcus epidermidis 06/16/24 14:37 Discharge - Eye Anaerobic Culture - Final No anaerobic bacteria isolated. 06/15/24 19:00 Urine Catheter - Denton Urine Culture - Final Culture exhibits no growth. 06/16/24 14:25 Stool Stool Occult Blood (ZITA) - Final ABG Data ABG results: ABG 06/27/24 11:07 Specimen Type ART Sample Site R Brach pH 7.38 Bicarbonate Actual 26.7 H Total CO2 28 Base Excess 2 O2 Saturation 93 L O2 % 4.0 ABG pCO2 45.3 H ABG pO2 67 L O2 Delivery Device Cannula Vent Mode Not entered Physical Exam Const Constitutional Narrative: Unable to lift his chin off his chest. Slumped to the side in the WC and unable to sit upright. Essentially no change since previous exams. Resp Resp Narrative: Very poor inspiratory effort. I can hear no air exchange in either base. I also do not hear any crackles or wheezes. He is not tachypneic and there is no accessory muscle use. No obvious effusion on the chest x-ray recently. Cardio regular rate, regular rhythm, no rub and no gallops Cardio Narrative: Distant heart sounds. No ectopy appreciated GI normal to inspection, nondistended, normoactive bowel sounds and soft to palpation GI Narrative: No guarding with palpation. PEG site has no purulent discharge and there is no significant erythema around the PEG. He does not grimace or flinch when I palpate around the PEG site. Extremity General Extremity: Negative for edema Skin Rashes: no rashes Neuro Neuro Narrative: Making no progress with therapy. Not sure if he understands what we are saying to him or if he just has no motivation to do anything. I seems as though he may just be giving up. To me he seems to be getting weaker. Sometimes refusing to work with therapy for the required amount of time. Assessment & Plan Assessment/Plan (1) Debility: (2) ICH (intracerebral hemorrhage): QUALIFIERS: Intracerebral hemorrhage etiology: nontraumatic C erebral hemorrhage location: other cerebral location Laterality: left Q ualified Code(s): I61.8 - Other nontraumatic intracerebral hemorrhage (3) Right hemiparesis: (4) Aphasia: (5) Dysarthria: (6) Dysphagia: QUALIFIERS: Dysphagia type: unspecified Qualified Code(s): R13.10 - Dysphagia, unspecified (7) S/P percutaneous endoscopic gastrostomy (PEG) tube placement: (8) Urine retention: (9) D[place] catheter present: (10) Depression: QUALIFIERS: Depression Type: major depressive disorder Major depression recurrence: unspecified whether recurrent Active/Remission status: c urrently active Major depression episode severity: severe Psychotic features: without psychotic features Qualified Code(s): F32.2 - Major depressive disorder, single episode, severe without psychotic features (11) HTN (hypertension): QUALIFIERS: Hypertension type: primary hypertension Qualified Code(s): I10 - Essential (primary) hypertension (12) Hypoxemia: PLAN: Plan 1. Continue therapy 2. I suspect the hypoxemia is multifactorial and secondary to significant emphysema with very poor inspiratory effort and atelectasis in the bases. I do not feel he has pneumonia. Will not prescribe antibiotics at this time. 3. I discussed with his that he is not made any significant progress in fact he is declining in my opinion on acute rehab. I no longer feel he is appropriate for acute rehab. She is determined not to have him go to a shelter and would like to take him home however I explained to her that it is taking to staff members to even use the Emiliana-Lift and pivot him into a chair. He is not really able to propel a wheelchair. He will need a Emiliana-Lift or Cecilia if he goes home. He also needs 24/7 supervision and needs 2 people to care for him. I suggested if she does take him home getting a palliative care consult. I would also like to have Adult Protective Services check up on them. Charges/Coding Visit Charges Inpatient E&M: 99190 Subs Hosp L2
[2024-06-28] MEDS: Sodium Chloride 1 GM Tablet GT ×2 (10:12→22:47)
[2024-06-28] MEDS: Carvedilol 25 MG Tablet GT ×2 (10:12→22:47)
[2024-06-28] MEDS: amLODIPine 10 MG Tablet GT (10:12)
[2024-06-28] MEDS: Docusate Sodium 100 MG/10 ML UDC GT ×2 (10:12→22:47)
[2024-06-28] MEDS: Cholecalciferol (Vit D3) 125 MCG CAPSULE (5,000 UNITS) GT (10:13)
[2024-06-28] MEDS: Thiamine Hydrochloride 100 MG Tablet GT (10:13)
[2024-06-28] MEDS: Ascorbic Acid 500 MG Tablet GT (10:13)
[2024-06-28] MEDS: Sertraline 100 MG Tablet GT (10:13)
[2024-06-28] MEDS: Finasteride 5 MG Tablet GT (10:13)
[2024-06-28 12:14] LABS: Procalcitonin 0.05 ng/mL (0.00-0.09)
--- NOTE | 2024-06-28 16:04 | CASEMGMT ---
Social Work [employer] does not carry [id number] lifts. SW referred to [facility], [facility]if and [employer]rijesh for the lift. [employer] and [employer] do not carry the lifts. Jacy Barajas, RASHID PLUMMERW
[2024-06-28] MEDS: RisperiDONE 0.5 MG Tablet PO (22:48)
[2024-06-29 06:00] VITALS: BP 110/70; PULSE 71; RESP 18; TEMP 36.5; O2SAT 95; BMI 28.5
[2024-06-29] MEDS: Enoxaparin 40 MG/0.4 ML Syringe SC (06:43)
[2024-06-29] MEDS: Jevity 1.5. 1,000 ML Bottle 240 ML GT ×5 (06:43→21:44)
[2024-06-29 06:50] VITALS: PULSE 70; RESP 16; O2SAT 95
[2024-06-29] MEDS: Ipratropium/Albuterol Sulfate 3 ML AMPUL.NEB INHALATION ×3 (06:50→19:43)
[2024-06-29] MEDS: Carvedilol 25 MG Tablet GT ×2 (09:22→21:42)
[2024-06-29] MEDS: Docusate Sodium 100 MG/10 ML UDC GT ×2 (09:22→21:42)
[2024-06-29] MEDS: Finasteride 5 MG Tablet GT (09:22)
[2024-06-29] MEDS: Menthol/Lanolin/Calamine/Znox 113 GM Tube 1 APPLIC TOPICAL ×2 (09:22→21:43)
[2024-06-29] MEDS: amLODIPine 10 MG Tablet GT (09:22)
[2024-06-29] MEDS: Sodium Chloride 1 GM Tablet GT ×2 (09:23→21:43)
[2024-06-29] MEDS: Thiamine Hydrochloride 100 MG Tablet GT (09:23)
[2024-06-29] MEDS: Cholecalciferol (Vit D3) 125 MCG CAPSULE (5,000 UNITS) GT (09:23)
[2024-06-29] MEDS: Ascorbic Acid 500 MG Tablet GT (09:23)
[2024-06-29] MEDS: Sertraline 100 MG Tablet GT (09:23)
[2024-06-29 11:00] VITALS: PULSE 70; RESP 16
--- NOTE | 2024-06-29 16:14 | CASEMGMT ---
Social Work At approximately 1530, insurance issued LCD 06/29, DC 06/30, due to pt not participating in therapy, not having a will to live, and not making progress. - JOE phoned [facility] to inquire about a SeraLift. They do have a manual lift in stock for approx $1,000. - JOE phoned to notify of DC and inquire her wishes for DC. wants to take pt home. SW educated to coordination of cot transport home, and insurance may not cover that cost. The information on the SeraLift. stated she is not prepared to pay that cost, but she will find her own provider for the lift. SW pressed for details, noting the strict timeframe for DC and this worker to coordinate all services prior to pt discharging. could not provide SW with an answer. SW questioned if would be open to pt transferring to a SNF simple to allow time to get all needs in place at home. expressed her assumption that once pt admits to a SNF, he cannot be discharged. SW corrected and educated to no minimum or maximum timeframe required; can DC pt at any time of her choosing. SW educated pt's insurance can be requested to coverage that cost, but if denied, would pay OOP. still wanting pt to be discharged home. - JOE phoned Callum ADORNO CM at [employer] ([place] for insurance reviews), per her request to assist with DC planning needs. Callum acknowledged the documentation noting the 's difficulty understanding the need for discharge planning and noted the lack of progress, motivation and participation from the pt. Callum offered that she does not anticipate the pt would qualify for skilled services; pt is more appropriate for fpc care. Though, Callum was agreeable to assist with precert for skilled care and have the MD make the final determination. Callum offered to provide list of INN SNFs, skilled HHC companies and DME companies. JOE appreciative and provided fax and phone number of this worker for that information. JOE explained the challenges of discharge planning and the recent agreement from the for SNF transfer until home is ready. Callum will follow up with this worker tomorrow to get outcome of DC plan. - JOE spoke with nursing staff to collaborate on pt's needs for homegoing. Pt will need O2 at 4.5LPM, hospital bed, feeding tube supplies, and recommended a osmar lift if the SeraLift is unattainable. IDT collectively expressed concern for pt's safety and 's abilities to properly care for pt, especially without all the needs in place for DC 06/30. SW agrees. Phoned again to inform her of conversation with insurance CM and clearly stated the above listed needs for the pt. Expressed concern with pt discharging home with limited time to plan and ensure all services are in place for pt's safety. Also, concern with 's lack of training to ensure her knowledge to properly assist pt at home. SW again requested if would consider DC to SNF to allow time for proper planning and teaching for homegoing. agreed to short-term stay, a week at most, and provided choice of [facility]. SW thanked and will place referral. SW left with [facility] admissions and placed referral via CarePort requesting prompt response. SW inquired to [facility] via [facility] for a osmar lift and hospital bed coverage and if they were in-stock for quick delivery. Will continue to follow for DC planning. Jacy Barajas, PHOTO INTERN SENIOR CLINICIAN
[2024-06-29 18:00] VITALS: BP 145/64; PULSE 76; RESP 16; TEMP 36.9; O2SAT 90
[2024-06-29 19:43] VITALS: PULSE 70; RESP 20; O2SAT 91
[2024-06-29 21:00] VITALS: PULSE 76; RESP 16; O2SAT 90
[2024-06-29] MEDS: RisperiDONE 0.5 MG Tablet PO (21:42)
[2024-06-29] MEDS: Petrolatum 33% Tube 1 APPLIC TOPICAL (21:43)
--- NOTE | 2024-06-29 22:45 | NURSING ---
2000 CPS up to give pt breathing tx and spo2 was 88% on 5l/m, respiratory increased pt 02 to 6l/m with sats increasing to 90%
[2024-06-30 06:00] VITALS: BP 138/65; PULSE 72; RESP 16; TEMP 36.7; O2SAT 93
[2024-06-30] MEDS: Petrolatum 33% Tube 1 APPLIC TOPICAL (06:39)
[2024-06-30] MEDS: Enoxaparin 40 MG/0.4 ML Syringe SC (06:40)
[2024-06-30] MEDS: Jevity 1.5. 1,000 ML Bottle 240 ML GT ×4 (06:40→17:51)
[2024-06-30 08:05] VITALS: PULSE 78; RESP 26; O2SAT 90
[2024-06-30] MEDS: Ipratropium/Albuterol Sulfate 3 ML AMPUL.NEB INHALATION ×3 (08:05→15:30)
[2024-06-30] MEDS: Thiamine Hydrochloride 100 MG Tablet GT (09:08)
[2024-06-30] MEDS: Docusate Sodium 100 MG/10 ML UDC GT (09:08)
[2024-06-30] MEDS: Cholecalciferol (Vit D3) 125 MCG CAPSULE (5,000 UNITS) GT (09:08)
[2024-06-30] MEDS: Ascorbic Acid 500 MG Tablet GT (09:08)
[2024-06-30] MEDS: Sodium Chloride 1 GM Tablet GT (09:08)
[2024-06-30] MEDS: Sertraline 100 MG Tablet GT (09:08)
[2024-06-30] MEDS: Carvedilol 25 MG Tablet GT (09:08)
[2024-06-30] MEDS: amLODIPine 10 MG Tablet GT (09:09)
[2024-06-30] MEDS: Finasteride 5 MG Tablet GT (09:09)
[2024-06-30] MEDS: Menthol/Lanolin/Calamine/Znox 113 GM Tube 1 APPLIC TOPICAL (09:11)
--- NOTE | 2024-06-30 10:09 | CASEMGMT ---
Social Work SW phoned [facility] [place] to inquire about referral status. Admissions stated there are no beds but can still review referral. SW denied if they cannot accept pt today. - SW phoned to update and inquire about additional facility choices. denied other [facility]. is agreeable to referrals to [facility] SNFs per insurance list, in [facility] vs [place]. SW agreed to place referrals to all SNFs and will update on outcomes. - SW [facility] and [facility] to: [facility], [facility], [facility] and [facility], which are within 15 miles of pt's zip code. SW will await outcomes. Jacy Barajas MSW DIRECTOR [employer]ACLE [employer]AIL
--- NOTE | 2024-06-30 11:06 | CASEMGMT ---
Addendum entered by Jacy Barajas 06/30/24 16:23: Pt accepted at [facility]. Hospice nurse is scheduling transport. No time known yet. Original Note: Social Work After further discussion with the Dr about DC plans, the Dr called the again to revisit hospice services for the pt. The ultimately agreed to hospice and IPU, though prefers pt is closer to home geographically. JOE researched other potential hospice IPUs. JOE spoke with Janeth at [facility] and received education on the partnership with [facility]. Patient would need to be transferred to their general inpatient floor, then consult hospice, and hospice would provide services while admitted, but it is pending the bed availability and hospitalist ability to admit pt to the hospital. Janeth provided that contact information. JOE phoned Benjamín, the bed coordinator, and there are no beds at this time, with a waiting list. JOE updated and phoned . very tearful on the phone and is agreeable to [facility]. JOE provided emotional support, empathized with this difficulty and the past losses with endured that she shared. JOE explained the process - this worker to place referral; hospice nurse to contact to schedule assessment of pt and meet with at on IRU; hospice MD to determine official acceptance to [facility], then coordination to the unit. understanding and agreeable and will come to the pt's room over the next couple of hours. JOE updated Dr. - JOE referred via secure email to [facility] for IPU, DC 06/30. Updated all SNFs via CarePort. Will continue to follow. RASHID Nicole
[2024-06-30 11:39] VITALS: PULSE 66; RESP 24; O2SAT 93
--- NOTE | 2024-06-30 13:32 | DCINST_ITS ---
Discharge Instructions Diet Discharge Diet: - (NPO) DC O2, CPAP, BIPAP needs Home O2 Discharge instructions: Yes Type of respiratory needs?: Oxygen Oxygen frequency: Continuous Continuous oxygen liters per minute: 4-6. Titrate to maintain pulse ox greater than or equal to 88%. Follow Up Care Test Results: Test results from this visit will be discussed in further detail at your follow- up appointment, if applicable. Discharge Plan Admission Admit Date/Time: 06/15/24 18:42 Primary Reason for Your Visit: POST STROKE DEBILITY/FTT/HYPOXEMIA Attending Provider: Mallika Franklin Primary Care Provider: Care Physician,No Primary Consulting Providers: Yassine Varghese; Audelia Gill; Steph Renee; Linda Mendoza; Yasmeen Green NP; Jo Ann Menchaca Discharge Orders/Prescriptions Prescriptions: New docusate sodium 50 mg/5 mL Liquid 100 mg G-tube BID Qty: 100 0RF amoxicillin-pot clavulanate 400-57 mg/5 mL Suspension For Reconstitution 10 ml PO BIDCM Qty: 14 0RF amlodipine 10 mg Tablet 10 mg G-tube DAILY Qty: 1 0RF ipratropium-albuterol 0.5 mg-3 mg(2.5 mg base)/3 mL Solution For Nebulization 3 ml inhalation Q4HWA.RT PRN (Reason: WHEEZING) Qty: 3 0RF Jevity 1.5 Michael 0.06 gram-1.5 kcal/mL Liquid 240 ml G-tube 5X/DAY PRN (Reason: HUNGER) Qty: 237 0RF risperidone 0.5 mg Tablet 0.5 mg PO QHS Qty: 1 0RF Continued carvedilol 12.5 mg tablet 25 mg feeding tube BID Discontinued ergocalciferol (vitamin D2) 1,250 mcg (50,000 unit) capsule 1,250 mcg feeding tube QWEEK meclizine 12.5 mg tablet 12.5 mg feeding tube TID PRN PRN (Reason: dizziness) amoxicillin-pot clavulanate 875-125 mg tablet 1 tab feeding tube BID ascorbic acid (vitamin C) 500 mg/5 mL liquid 500 mg PO DAILY heparin (porcine) 5,000 unit/mL solution 5,000 unit subcut Q8H No Action amlodipine 10 mg tablet 10 mg feeding tube DAILY thiamine HCl (vitamin B1) 100 mg tablet 100 mg feeding tube DAILY Referrals / Follow Up: Ena Foster MD [Non-Staff] - 07/20/24 1:40 pm Disposition Disposition (needs filled in before D/C Order can be placed): Hospice in Medical Facility
--- NOTE | 2024-06-30 13:55 | PCM.DC.SUM ---
Providers Date of Admission: 06/15/24 Date of Discharge: 06/30/24 Primary Care Physician: Ebony Primary Care Phys Consultations 06/30/24 10:51 Consult: Hospice / Palliative Care Routine Consulting Provider: [facility] Reason for Consult: HOSPICE: DX: UNRECOVERABLE STROKE, FAILURE TO THRIVE EMERGENT Consult: Yes MD Notified: Yes Date Notified: 06/30/24 Time Notified: 10:51 Method of Notification: Verbal Reason For Visit: ICH/IVH Diagnosis Discharge Diagnosis (1) Debility: Status: Acute Code(s): R53.81 - Other malaise (2) ICH (intracerebral hemorrhage): Status: Acute Code(s): I61.9 - Nontraumatic intracerebral hemorrhage, unspecified Qualifiers: Cerebral hemorrhage location: other cerebral location Intracerebral hemorrhage etiology: nontraumatic Laterality: left Qualified Code(s): I61.8 - Other nontraumatic intracerebral hemorrhage (3) Right hemiparesis: Status: Acute Code(s): G81.91 - Hemiplegia, unspecified affecting right dominant side (4) Aphasia: Status: Acute Code(s): R47.01 - Aphasia (5) Dysarthria: Status: Acute Code(s): R47.1 - Dysarthria and anarthria (6) Dysphagia: Status: Acute Code(s): R13.10 - Dysphagia, unspecified Qualifiers: Dysphagia type: unspecified Qualified Code(s): R13.10 - Dysphagia, unspecified (7) S/P percutaneous endoscopic gastrostomy (PEG) tube placement: Status: Acute Code(s): Z93.1 - Gastrostomy status (8) Urine retention: Status: Acute Code(s): R33.9 - Retention of urine, unspecified (9) Denton catheter present: Status: Acute Code(s): Z97.8 - Presence of other specified devices (10) Depression: Status: Acute Code(s): F32.A - Depression, unspecified Qualifiers: Active/Remission status: currently active Depression Type: major depressive disorder Major depression episode severity: severe Major depression recurrence: unspecified whether recurrent Psychotic features: without psychotic features Qualified Code(s): F32.2 - Major depressive disorder, single episode, severe without psychotic features (11) HTN (hypertension): Status: Chronic Code(s): I10 - Essential (primary) hypertension Qualifiers: Hypertension type: primary hypertension Qualified Code(s): I10 - Essential (primary) hypertension (12) Hypoxemia: Status: Acute Code(s): R09.02 - Hypoxemia Plan 1. Continue therapy 2. I suspect the hypoxemia is multifactorial and secondary to significant emphysema with very poor inspiratory effort and atelectasis in the bases. I do not feel he has pneumonia. Will not prescribe antibiotics at this time. 3. I discussed with his that he is not made any significant progress in fact he is declining in my opinion on acute rehab. I no longer feel he is appropriate for acute rehab. She is determined not to have him go to a group home and would like to take him home however I explained to her that it is taking to staff members to even use the Emiliana-Lift and pivot him into a chair. He is not really able to propel a wheelchair. He will need a Emiliana-Lift or Cecilia if he goes home. He also needs 24/ supervision and needs 2 people to care for him. I suggested if she does take him home getting a palliative care consult. I would also like to have Adult Protective Services check up on them. Medications at Discharge Home Medications amlodipine 10 mg tablet 10 mg feeding tube DAILY BP 06/15/24 carvedilol 12.5 mg tablet 25 mg feeding tube BID BP 06/15/24 thiamine HCl (vitamin B1) 100 mg tablet 100 mg feeding tube DAILY supplement 06/15/24 amlodipine 10 mg tablet 10 mg G-tube DAILY #1 TAB 06/30/24 amoxicillin 400 mg-potassium clavulanate 57 mg/5 mL oral suspension 10 ml PO BIDCM #14 doses 06/30/24 docusate sodium 50 mg/5 mL oral liquid 100 mg (10 mL) G-tube BID #100 mL 06/30/24 ipratropium 0.5 mg-albuterol 3 mg (2.5 mg base)/3 mL nebulization soln 3 ml inhalation Q4HWA.RT PRN WHEEZING #3 mL 06/30/24 lactose-reduced food with fiber 0.06 gram-1.5 kcal/mL oral liquid (Jevity 1.5 Michael) 240 ml G-tube 5X/DAY PRN HUNGER #237 mL 06/30/24 risperidone 0.5 mg tablet 0.5 mg PO QHS #1 TAB 01/24/25 Hospital Course Operations None Procedures Peg tube placement Summary of Care Provided Minutes Spent on Discharge: 40 Hospital Course: NICOLASA ALLEN, is a 73 YO M with a PMH of HTN, remote tobacco dependence (quit prior to 2009) and 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 He was diagnosed with a left basal ganglia bleed with IVH. He had urine retention in the hospital and he had a Denton at presentation to rehab. He had severe dysphagia and was being fed through a PEG. He had severe aphasia and was not able to communicate. he was non-verbal at admission to rehab. He had been getting antibiotics for pneumonia. He was transferred to the acute inpatient rehab unit at [facility] on 06/15/24 for 3 hours of therapy daily to restore function/independence at or near his level prior to the recent event. Incidental findings on the imaging at [facility] were a R parotid mass and a Left adrenal nodule. Nicolasa failed to improve with therapy. He was not able to do 3 hours of therapy and he became progressively weaker. He was started on an antidepressant and this did not help with motivation. He had progressive decline while on rehab. He became agitated at times and would push away the staff member when they were trying to give a tube feed. He was not sleeping well at night. He was started on Risperdal 0.5 mg at HS and this was effective. He is no longer having any aggressive behavior and he allows the nurses to give TF most of the time. He is unable to support his head and sits in bed with the head slumped on his chest. He is unable to maintain an upright posture when seated in the and tends to fall forward. He often refuses to work with therapy. He is hypoventilating and we have had to steadily increase the supplemental oxygen. An ABG was checked and he is not a CO2 retainer. He has been afebrile and he stopped coughing after 1 week on rehab. WBC is mildly elevated at times. A CXR was checked and was reported by radiology as having infiltrate in the R base. this has not significantly changed since admission to rehab. Procalcitonin is WNL and the ESR and CRP are only mildly elevated. I do not feel he has PNA but, I prescribed a 7 day course of Augmentin to see if we could possibly get the oxygen requirement down. He has severe hypoventilation and I barely hear any air movement when he takes of breath. His lungs are clear but markedly diminished. He does not appear to be in any respiratory distress. He is not tachypneic. Nicolasa is not going to recover from this stroke and he has no motivation to even do therapy. I discussed with his Yuliet and she was agreeable to a hospice consult. Yuliet elected to have Nicolasa transferred to the in hospice unit in [place], he was discharged on 06/30/24 to [facility] in [place]. Physical Exam Const Constitutional Narrative: awake. non-verbal. does not appear to be in any distress. Resp Resp Narrative: Very poor inspiratory effort. I can hear no air exchange in either base. I also do not hear any crackles or wheezes. He is not tachypneic and there is no accessory muscle use. No obvious effusion on the chest x-ray recently. Cardio regular rate, regular rhythm, no rub and no gallops Cardio Narrative: Distant heart sounds. No ectopy appreciated GI normal to inspection, nondistended, normoactive bowel sounds and soft to palpation GI Narrative: No guarding with palpation. PEG site has no purulent discharge and there is no significant erythema around the PEG. He does not grimace or flinch when I palpate around the PEG site. Extremity General Extremity: Negative for edema Skin Rashes: no rashes Weight / BMI Weight Weight: 171 lb 4.787 oz Body Mass Index (BMI) 28.5 ABG / Lab / Microbiology Data 06/28/24 05:22 06/28/24 05:22 Microbiology: Microbiology 06/16/24 14:37 Discharge - Eye Gram Stain - Final 06/16/24 14:37 Discharge - Eye Eye Culture - Final Staphylococcus epidermidis 06/16/24 14:37 Discharge - Eye Anaerobic Culture - Final No anaerobic bacteria isolated. 06/15/24 19:00 Urine Catheter - Denton Urine Culture - Final Culture exhibits no growth. 06/16/24 14:25 Stool Stool Occult Blood (ZITA) - Final D/C Instructions Discharge Diet: - (NPO) DC O2, CPAP, BIPAP Needs PSN CPAP & BiPAP: BiPAP & CPAP Settings per PSN Fraction of Inspired Oxygen ( 4 06/22/24 06:00 FIO2) Home O2 Discharge instructions: Yes Type of respiratory needs?: Oxygen Oxygen frequency: Continuous Continuous oxygen liters per minute: 4-6. Titrate to maintain pulse ox greater than or equal to 88%. DC home with Oxygen: Yes Home O2 MD Review: I have reviewed the oxygen testing, and the patient qualifies for home oxygen equipment and portability. The patient is mobile in the home and the community. Meaningful Use Info Meaningful Use Meaningful Use Diagnoses (Choose all that apply): Hemorrhagic CVA CVA Therapy Assessed for PT,OT and/or ST?: Yes Ischemic Stroke Antithrombotic order at d/c?: No Reason antithrombotic not ordered: Hospice Dx of Atrial fib/flutter?: No Anticoagulant at discharge?: No Reason anticoagulant not ordered: Hospice and Treatment not Indicated Statin Dosing Therapy Reference: STATIN DOSE THERAPY REFERENCE: * Patients > 75 years receive moderate or high dose statin therapy. * Patients 75 years or YOUNGER should receive HIGH intensity statin dose unless contraindicated. You will be required to document reason for non-treatment if statin daily dose does not meet guidelines. HIGH DOSE STATIN THERAPY DAILY Atorvastatin > than or = to 40 mg Rosuvastatin > than or = to 20 mg Amlodipine + Atorvastatin > than or = to 2.5/40 mg Ezetimibe + Simvastatin 10/80 mg Simvastatin 80mg Statins at discharge?: No Reason Statin not ordered: Hospice If patient is 75 or younger, pt will be discharged on HIGH intensity statin.: No High intensity statin for patient 75 or younger not ordered due to: Pt going hospice Discharge Plan Admission Admit Date/Time: 06/15/24 18:42 Primary Reason for Your Visit: POST STROKE DEBILITY/FTT/HYPOXEMIA Attending Provider: Mallika Franklin Primary Care Provider: Care Physician,No Primary Consulting Providers: Yassine Varghese; Audelia Gill; Steph Renee; Linda Mendoza; Yasmeen Green NP; Jo Ann Menchaca Discharge Orders/Prescriptions Prescriptions: New docusate sodium 50 mg/5 mL Liquid 100 mg G-tube BID Qty: 100 0RF amoxicillin-pot clavulanate 400-57 mg/5 mL Suspension For Reconstitution 10 ml PO BIDCM Qty: 14 0RF amlodipine 10 mg Tablet 10 mg G-tube DAILY Qty: 1 0RF ipratropium-albuterol 0.5 mg-3 mg(2.5 mg base)/3 mL Solution For Nebulization 3 ml inhalation Q4HWA.RT PRN (Reason: WHEEZING) Qty: 3 0RF Jevity 1.5 Michael 0.06 gram-1.5 kcal/mL Liquid 240 ml G-tube 5X/DAY PRN (Reason: HUNGER) Qty: 237 0RF risperidone 0.5 mg Tablet 0.5 mg PO QHS Qty: 1 0RF Continued carvedilol 12.5 mg tablet 25 mg feeding tube BID Discontinued ergocalciferol (vitamin D2) 1,250 mcg (50,000 unit) capsule 1,250 mcg feeding tube QWEEK meclizine 12.5 mg tablet 12.5 mg feeding tube TID PRN PRN (Reason: dizziness) amoxicillin-pot clavulanate 875-125 mg tablet 1 tab feeding tube BID ascorbic acid (vitamin C) 500 mg/5 mL liquid 500 mg PO DAILY heparin (porcine) 5,000 unit/mL solution 5,000 unit subcut Q8H No Action amlodipine 10 mg tablet 10 mg feeding tube DAILY thiamine HCl (vitamin B1) 100 mg tablet 100 mg feeding tube DAILY Referrals / Follow Up: Ena Foster MD [Non-Staff] - 07/20/24 1:40 pm Disposition Disposition (needs filled in before D/C Order can be placed): Hospice in Medical Facility Charges/Coding Visit Charges Inpatient E&M: 36428 Disch Hosp >30min
[2024-06-30 15:28] VITALS: PULSE 70; RESP 16; O2SAT 91
--- NOTE | 2024-06-30 16:32 | NURSING ---
Hospice in to speak with about discharging to [facility]. is agreeable. Hospice nurse gets DNR-CC signed for their records. 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 Franklin and Jacy DIAZ made aware.
[2024-06-30 17:00] VITALS: BP 115/68; PULSE 71; RESP 16; TEMP 36.9; O2SAT 99
[2024-06-30] MEDS: Amox/Clav 400mg/5ml Susp 875 MG PO (17:54)
--- NOTE | 2024-06-30 18:39 | NURSING ---
Report was given to nurse at [facility]. Discharge packet sent with transport personnel. in room for patient pick-up but chose not to go to [facility] with patient.
== END 2024-06-30 18:20 | disposition hospice, inpatient (51) | DRG 56 ==
PROVIDERS: Admitting Provider Internal Medicine; Visit Provider Internal Medicine
DX: I69.151 Hemiplegia and hemiparesis following nontraumatic intracerebral hemorrhage affecting right dominant side (principal); J18.9 Pneumonia, unspecified organism; F32.2 Major depressive disorder, single episode, severe without psychotic features; E87.1 Hypo-osmolality and hyponatremia; E27.8 Other specified disorders of adrenal gland; I69.120 Aphasia following nontraumatic intracerebral hemorrhage; J43.2 Centrilobular emphysema; I10 Essential (primary) hypertension; Z93.1 Gastrostomy status; H10.9 Unspecified conjunctivitis; K11.8 Other diseases of salivary glands; I69.122 Dysarthria following nontraumatic intracerebral hemorrhage; I69.191 Dysphagia following nontraumatic intracerebral hemorrhage; R33.9 Retention of urine, unspecified; Z87.891 Personal history of nicotine dependence; Z79.01 Long term (current) use of anticoagulants; R73.9 Hyperglycemia, unspecified; N34.2 Other urethritis; Z79.899 Other long term (current) drug therapy
CPT/HCPCS: 36415; 36600; 70450; 71045; 74018; 80048; 80061; 80076; 81001; 82274; 82533; 82803; 83036; 83735; 83930; 83935; 84100; 84145; 84300; 84443; 85025; 85652; 86140; 87070; 87075; 87077; 87086; 87186; 87205; 92507; 92523; 92526; 92610; 92612; 94640; 97110; 97112; 97129; 97130; 97140; 97162; 97166; 97530; 97535; 97802; 97803; A4216; J0834